=== PATIENT | male | born 1950 | race Caucasian/White ===

== ENCOUNTER 2018-07-19 04:16 | Inpatient (IN) | payer MEDICARE, SELFPAY ==
[2018-07-19] VITALS (18 sets, daily range): BP systolic 121–216; BP diastolic 76–111; PULSE 68–83; RESP 14–26; TEMP 36.5–37; O2SAT 94–97; BMI 38.8; BMI 38.2; BMI 38.3
--- NOTE | 2018-07-19 04:26 | EKG12_ITS ---
Test Reason : CP Blood Pressure : / mmHG Vent. Rate : 081 BPM Atrial Rate : 081 BPM P-R Int : 154 ms QRS Dur : 080 ms QT Int : 362 ms P-R-T Axes : 030 -02 105 degrees QTc Int : 420 ms Normal sinus rhythm Cannot rule out Anteroseptal infarct , age undetermined ST & T wave abnormality, consider lateral ischemia Abnormal ECG Confirmed by KASSY DUGAN MD ([id number]), editor in chief BAR DAN ([id number]) on 07/20/2018 1:05:08 PM Referred By: Shreyas Luna Confirmed By:KASSY DUGAN MD
--- NOTE | 2018-07-19 04:26 | RAD_ITS ---
HISTORY: Chest Pain EXAM:XR Chest 1 View: Portable COMPARISON: None FINDINGS: EKG leads in place. The upper lobes are emphysematous. Reticular interstitial opacity involving the mid and lower lung zones suggestive of scarring. Acute interstitial infiltrates is considered less likely. No definite pleural effusion. Atherosclerotic thoracic aorta. No pneumothorax. RAD/Chest 1 View (Portable) IMPRESSION: 1. Chronic lung disease with emphysema. Bilateral interstitial scarring is suggested and interstitial infiltrates are believed less likely. at 0514 Reported and signed by: Sergey Robison MD Electronically Signed: Sergey Robison, at 5:13 EDT Tel , Service support ,
[2018-07-19] MEDS: 0.9% Normal Saline 1,000 ML 150 ML IV (04:34)
[2018-07-19 04:35] LABS: Absolute Lymphocyte Count 2.11 X10^3/ul (0.83-4.51); Absolute Neutrophil Count 2.9 X10^3/uL (2.0-7.7); Basophil# 0.01 X10^3/uL; Basophil% 0.2 % (0-1); Eosinophil# 0.24 X10^3/uL; Eosinophils% 4.1 % (0-5); Hematocrit 45.9 % (40-54); Hemoglobin 15.5 g/dl (13.0-16.5); Lymphocyte # 2.11 X10^3/ul (4.0); Lymphocyte % 36.1 % (19-41); Mean Corp Hgb Conc 33.8 g/gl (32-36); Mean Corpuscular Hgb 32.8 pg (27.0-32.0); Mean Platelet Vol. 10.6 fl (6.2-12.0); Monocyte# 0.55 X10^3/uL; Monocyte% 9.4 % (0-10); Neutrophil % 49.7 % (47-70); Platelet Count 161 K/mm3 (150-450); RBC Distribution Width SD 46.1 fl (35.1-43.9); Red Blood Count 4.73 M/mm3 (4.6-6.2); White Blood Count 5.8 K/mm3 (4.4-11.0)
[2018-07-19] MEDS: Aspirin 81 MG TAB.CHEW 324 MG PO (04:35)
[2018-07-19 04:40] LABS: POSITIVE COUNT NO; POSITIVE DIFFERENTIAL NO; POSITIVE MORPHOLOGY NO
--- NOTE | 2018-07-19 04:45 | EKG12_ITS ---
Test Reason : REPEAT EKG Blood Pressure : / mmHG Vent. Rate : 076 BPM Atrial Rate : 076 BPM P-R Int : 156 ms QRS Dur : 080 ms QT Int : 384 ms P-R-T Axes : 018 -13 059 degrees QTc Int : 432 ms Normal sinus rhythm Minimal voltage criteria for LVH, may be normal variant Inferior infarct , age undetermined Anteroseptal infarct , age undetermined Abnormal ECG Confirmed by KAILEE DUNCAN, KASSY ([id number]), book or script editor BAR DAN ([id number]) on 07/20/2018 1:04:33 PM Referred By: Shreyas Luna Confirmed By:KASSY DUGAN MD
[2018-07-19] MEDS: Nitroglycerin Oint 1 INCH PACKET TRANSDERM. (04:46)
[2018-07-19] MEDS: Acetaminophen 325 MG Tablet 650 MG PO (04:47)
[2018-07-19 05:17] LABS: Anion Gap 10 (5-15); BUN 26 mg/dL (7-18); BUN/Creat Ratio 17.4 RATIO (10-20); Calcium,Total 9.4 mg/dL (8.5-10.1); Chloride 100 mmol/L (98-107); Creatinine, Serum 1.49 mg/dL (0.70-1.30); EST Glomerular Filtration Rate 50 mL/min (>60); Est Glom Filt Rate - Afr Amer 61 mL/min (>60); Estimated Creatinine Clearance 44.01 ml/min; Glucose 152 mg/dL (74-106); Potassium 4.2 mmol/L (3.5-5.1); Sodium Level 136 mmol/L (136-145)
--- NOTE | 2018-07-19 05:31 | ED.DCSUM_ITS ---
- ER Visit Summary Date of Service: 07/19/18 Chief Complaint: [Chest pain] History of Present Illness: The patient is a 67 M [presents with chest pain that is had off and on for the last week. Patient states pain worse with activity and exertion. He describes a dull ache and tightness in his chest. Pain at times will radiate into both shoulders and arms. Patient had some nausea but no vomiting. At times feels short of breath with activity and exertion. Patient states the pain woke him up around 1 AM and would not resolved. Patient has history of hypertension, diabetes, high cholesterol, and history of remote larynx cancer. Patient denies recent travel or surgery.] Physical Examination: [HEENT-PERRLA, EOMI. Cranial nerves II through XII grossly intact. TMs clear. Mucous membranes moist. No adenopathy. Cardiovascular-regular rate and rhythm without murmur or ectopy Lungs-clear to auscultation, chest wall stable without crepitus or subcu emphysema Abdomen-normoactive bowel sounds, soft, nontender, no rebound or rigidity, no peritoneal signs. Extremities-intact ?4, normal range of motion, normal pulses, atraumatic] Test Results: [EKG obtained arrival shows sinus rhythm with a ventricular rate of 81 bpm. Patient had less than half a millimeter ST elevation in lead V2 with a deep Q wave in patient also with diffusely inverted T waves in V3 through V6 as well as in 1 and aVL. When compared with prior EKG from 2010 all these lerma es are new. CBC with differential obtained on arrival showed a white count of 5.8, hemoglobin 15, hematocrit 46, platelets 161. Chemistries unremarkable. BUN was 26 and creatinine 1.49. Troponin was 0.033. Chest x-ray showed chronic interstitial changes otherwise nothing acute. Second EKG obtained proximally half an hour after the first without any significant change when compared with the first.] Emergency Department Course and Treatment: [Patient received aspirin. Patient received 1 sublingual nitro every 5 minutes x2 and his pain resolved. Patient had an inch of Nitropaste placed to the anterior chest wall. Patient was started on a heparin drip. Patient case was discussed with STEMI physician who was comfortable with the aspirin and the heparin drip however he did not want to give Brilinta or Plavix. It is believe plate patient will likely require a heart catheterization versus stress test.] Treatment Plan: [Admit for further workup and evaluation of patient's chest pain] Disposition: [Admit] Impression: [Acute coronary syndrome] This note was generated with [employer] dictation software. It may contain incorrect words, spelling, and punctuation that were not noted in review of the chart prior to signing ED Disposition - Plan for ED Patient: Referrals: Yanick Rashid MD [Primary Care Provider] -
[2018-07-19] MEDS: HEPARIN/D5w 25,000 UNITS 25,000 UNITS/250 ML IV.SOLN. 15 UNITS IV (05:36)
[2018-07-19] MEDS: Heparin Injection (Vial) 5,000 UNIT/ML VIAL 8000 UNIT IV (05:36)
[2018-07-19 05:40] LABS: Partial Thromboplast Time 33.4 Seconds (24.1-36.2)
--- NOTE | 2018-07-19 06:16 | HP.PCM_ITS ---
Problem List (1) Unstable angina Status: Acute (2) HTN (hypertension) Status: Chronic (3) Diabetes Status: Chronic History of Present Illness Date of Admission: 07/19/18 Chief Complaint: chest pain The patient is a 67 year old M with a significant history of hypertension; recently diagnosed diabetes mellitus; probable hyperlipidemia; COPD; laryngeal cancer status post radiation who presented to the emergency department with 1 week history of progressively worsening aching substernal chest pain that radiated to his bilateral arms and to his teeth. For the last 2 denies this chest pain woke him up from his sleep. His chest pain improves at rest and worsens with walking in the cold. At the emergency department EKG showed minimal ST elevation in lead V2 and ST de pression in leads I, aVL, V2, V3, V4, and V5, as well as T wave flattening in lead V6. Also at emergency department patient had severely elevated blood pressure. Cardiology was consulted. Per emergency department doctor cardiology did not want any Plavix or Brilinta. Patient received aspirin 324 mg at emergency department and nitroglycerin paste was placed on patient's shoulder. Also patient was started on heparin drip at the emergency department. He reported that his father from a heart attack at age 45. His mother had a triple bypass surgery at about age 66 and at age 67. Past Medical History Past Medical History (Chronic Problems): Chronic Problems HTN (hypertension) (Chronic) Diabetes (Chronic) Allergies azithromycin [From Zithromax] Allergy (Verified 07/19/18 04:23) Hives diltiazem Allergy (Verified 07/19/18 04:23) Swelling Penicillins [PCN] Allergy (Verified 07/19/18 04:23) Anaphylaxis tetracycline Allergy (Verified 07/19/18 04:23) Hives amlodipine Adverse Reaction (Verified 07/19/18 04:23) Diarrhea nifedipine Adverse Reaction (Verified 07/19/18 04:23) Upset Stomach simvastatin Adverse Reaction (Verified 07/19/18 04:23) Other Home Medications: Ambulatory Orders Medication Instructions Recorded Albuterol Aerosols [Ventolin 2.5 mg INHALATION Q4HWA.RT 07/19/18 Aerosols] Albuterol IH (ProAir) [Proair Hfa 1 puff INHALATION Q4H PRN PRN 07/19/18 (SP)Vent Pts] Aspirin [Aspir 81] 81 mg PO DAILY 07/19/18 Atenolol 50 mg PO DAILY 07/19/18 Atorvastatin Calcium 10 mg PO DAILY 07/19/18 Doxazosin Mesylate [Cardura] 1 mg PO DAILY 07/19/18 Furosemide [Lasix] 20 mg PO DAILY PRN 07/19/18 Lisinopril 20 mg PO DAILY 07/19/18 Loratadine 10 mg PO DAILY PRN 07/19/18 Meloxicam 15 mg PO DAILY 07/19/18 Metformin HCl 500 mg PO DAILY 07/19/18 Omeprazole [Prilosec] 20 mg PO DAILY 07/19/18 Ropinirole HCl 0.25 mg PO QHS 07/19/18 Surgical History: - - Laryngeal biopsy Lives: Spouse/ Significant Other Smoking Status: Former smoker - Quit 2 weeks ago - *Family History Maternal History Items: Heart Disease Paternal History Items: Heart Disease Review of Systems Constitutional: Denies: Chills, Fever, Weight Change HEENT: Denies: Head Aches, Sinus Congestion, Sinus Drainage Cardiovascular: Reports: Chest Pain. Denies: Palpitations Respiratory: Reports: Shortness of Breath - chronic. Denies: Cough, Shortness of breath at rest, Sputum production Gastrointestinal: Denies: Abdominal Pain, Nausea, Vomiting Genitourinary: Denies: Dysuria Musculoskeletal: Denies: Joint Pain, Joint Tenderness Skin: Denies: Rash, Wounds Neurological: Denies: Numbness, Tingling, Focal weakness Psychiatric: Denies: Anxiety, Depression, Homicidal Ideations, Suicidal Ideations Hematologic/ Lymphatic: Denies: Easy Bruising, Easy Bleeding VTE Information - Inpt Only VTE Present on Admission: No VTE Mechan Device Prophylaxis: None VTE Pharm Prophylaxis ordered?: No Reason prophylaxis not ordered:: Treatment Not Indicated - Started on a heparin drip for unstable angina. Patient Problems: Active and Suspected Problems Unstable angina (Acute) - Physical Exam General: Alert, Oriented x3, Cooperative HEENT: Atraumatic, PERRLA, EOMI, Normocephalic Neck: Supple, No JVD, Negative Carotid Bruits Lungs: Clear to auscultation, Normal air movement Cardiovascular: Regular rate, No murmurs Abdomen: Bowel Sounds Present, Soft, Non Tender Extremities: No edema, Capillary Refill Less than 3 Seconds Skin: No rashes, No breakdown Musculoskeletal: No Tenderness to Palpation of Joints or Extremities Neurological: Neuro grossly intact Psych/Mental Status: Normal Affect, Appropriate Vital Signs Temp Pulse Resp BP Pulse Ox 97.8 F 70 14 176/95 H 97 07/19/18 04:17 07/19/18 05:38 07/19/18 05:38 07/19/18 05:38 07/19/18 05:38 Oxygen Flow Rate (L/min) 2 Oxygen Delivery Method Nasal Cannula Weight: 109.2 kg Body Mass Index (BMI) 38.8 Laboratory Tests Past 24 Hrs 07/19/18 07/19/18 07/19/18 04:24 04:24 04:24 WBC 5.8 RBC 4.73 Hgb 15.5 Hct 45.9 MCV 97.0 H MCH 32.8 H MCHC 33.8 RDW 13.0 RDW Differential 46.1 H Plt Count 161 MPV 10.6 Immature Gran % (Auto) 0.500 Neut % (Auto) 49.7 Lymph % (Auto) 36.1 [place] % (Auto) 9.4 Eos % (Auto) 4.1 Baso % (Auto) 0.2 Absolute Neuts (auto) 2.9 Absolute Lymphs (auto) 2.11 Total Counted Not Reportable APTT 33.4 Sodium 136 Potassium 4.2 Chloride 100 Carbon Dioxide 26.0 Anion Gap 10 BUN 26 H Creatinine 1.49 H Estim Creat Clear Calc 44.01 Est GFR (MDRD) Af Amer 61 Est GFR (MDRD) Non-Af 50 L BUN/Creatinine Ratio 17.4 Glucose 152 H Calcium 9.4 Troponin I 0.033 Assessment/Plan All Active Problems Unstable angina (Acute) The patient is a 67 year old M with a significant history of hypertension; currently diagnosed diabetes mellitus; probable hyperlipidemia; COPD; laryngeal cancer status post radiation who presented to the emergency department with 1 week history progressively worsening aching substernal chest pain that radiated to his bilateral arms and teeth; and with EKG changes of subtle ST elevation in lead V2 and with T wave inversions in multiple leads as well as T wave flattening in lead V6 consistent with likely unstable angina and hypertensive emergency. Unstable angina Admit to a monitored bed on PCU CXR independently reviewed confirms diffuse bilateral pulmonary infiltrates. EKG independently reviewed confirms minimal ST elevation in lead V2 and ST depression in leads I, aVL, V2, V3, V4, and V5, as well as T wave flattening in lead V6. Old records reviewed showed sinus rhythm and sinus tachycardia without ST or T wave abnormalities. Received aspirin 324 mg at emergency department. Resume home aspirin ASA 81 mg p.o. daily Received Nitropaste in the emergency department. We will keep this Nitropaste. Morphine as needed for pain We will check lipid panel. On home atorvastatin 10 mg daily. High intensity statin x1 dose ordered. Troponin was unremarkable at the emergency department. Serial cardiac enzymes Started on heparin drip at emergency department. Heparin drip continued. Stat EKG as needed for chest pain Date Night Caregiver was consulted at the emergency department. Per cardiology no Plavix at this time and cardiology will see patient in a.m. Consult placed inpatient. Hypertensive emergency Highest systolic blood pressure was 216; highest diastolic blood pressure was 111. Nitropaste was placed at the emergency department.; Maintain Nitropaste Labetalol 10 mg x1 ordered. Patient is on home lisinopril and atenolol. Because of probable AK I would hold lisinopril at this time. Atenolol reordered. As needed hydralazine and as needed labetalol ordered. Chest x-ray independently reviewed showed pulmonary infiltrates. However radiology interpretation was probable scarring. Because patient may be going for cardiac cath we will hold off Lasix at this time. Importantly patient is on home Lasix as needed. Trend blood pressures and adjust blood pressure medication. Diabetes mellitus At presentation blood glucose was within goal. Patient is on home metformin. We will hold off metformin since it is too early in admission and patient may go for cardiac catheterization. Patient has been placed n.p.o. for likely procedure. Accu-Cheks every 6 hours with correction scale insulin ordered. Probable DONNIE On admission his creatinine was 1.49. And his BUN was 26. BUN over creatinine was 17.4. It could be vascular congestion from heart failure as his chest x-ray independently reviewed showed diffuse pulmonary infiltrates. We will hold off Lasix at this time. Anticipate that if patient is going for cardiac cath cardiology may start IV fluids. Importantly patient is on home Lasix p.o. as needed. Cannot rule out CKD at this time. COPD Denies shortness of breath above his baseline. PRN albuterol continued. Tobacco abuse Patient reports smoking but stopped smoking 2 weeks ago because of planned right knee surgery for knee pain (? Osteoarthritis). Counselled. DVT prophylaxis Not indicated as patient is on heparin drip for unstable angina. Code Visit Inpatient E&M: 29568 Init Hosp L3
[2018-07-19] MEDS: fentaNYL 100 MCG/2 ML Ampul 50 MCG IV (06:25)
[2018-07-19 06:26] LABS: Prothrombin Time (Protime)PT. 12.9 SECONDS (11.7-14.9)
--- NOTE | 2018-07-19 06:26 | EKG12_ITS ---
Test Reason : REPEAT EKG Blood Pressure : / mmHG Vent. Rate : 082 BPM Atrial Rate : 082 BPM P-R Int : 152 ms QRS Dur : 078 ms QT Int : 362 ms P-R-T Axes : 016 -11 137 degrees QTc Int : 422 ms Normal sinus rhythm Inferior infarct , age undetermined Anteroseptal infarct , age undetermined T wave abnormality, consider lateral ischemia Abnormal ECG Confirmed by KASSY DUGAN MD ([id number]), editor sound BAR DAN ([id number]) on 07/20/2018 1:05:29 PM Referred By: Shreyas Luna Confirmed By:KASSY DUGAN MD
--- NOTE | 2018-07-19 07:30 | EKG12_ITS ---
Test Reason : CP Blood Pressure : / mmHG Vent. Rate : 074 BPM Atrial Rate : 074 BPM P-R Int : 154 ms QRS Dur : 078 ms QT Int : 376 ms P-R-T Axes : 014 -12 026 degrees QTc Int : 417 ms Normal sinus rhythm Moderate voltage criteria for LVH, may be normal variant Inferior infarct , age undetermined Anteroseptal infarct , age undetermined Abnormal ECG When compared with ECG of 19-JUL-2018 07:53, MANUAL COMPARISON REQUIRED, DATA IS UNCONFIRMED Confirmed by KAILEE DUNCAN, KASSY ([id number]), offline editor BAR DAN ([id number]) on 07/21/2018 1:11:54 PM Referred By: Shreyas Luna Confirmed By:KASSY DUGAN MD
[2018-07-19] MEDS: Atorvastatin Calcium 80 MG Tablet PO (08:46)
[2018-07-19] MEDS: Atenolol 50 MG Tablet PO (08:46)
[2018-07-19] MEDS: Doxazosin 1 MG Tablet PO (08:46)
[2018-07-19] MEDS: Pantoprazole Sodium 20 MG Tablet PO (08:47)
--- NOTE | 2018-07-19 09:07 | PCM.CONS.C ---
Reason for Consult Date of Consultation: 07/19/18 Reason for Consultation: Chest discomfort. History of Present Illness: The patient is a 67 year old M with a history of hypertension, hyperlipidemia, obesity who presented to the emergency room yesterday after experiencing chest discomfort which he described as a heaviness radiating to his left arm and his jaw. There was no nausea or diaphoresis or paroxysmal nocturnal dyspnea. He says that he has had some of this discomfort over the last few weeks. He presented to the emergency room his EKG demonstrated subtle T wave inversions anteriorly and his troponin was minimally elevated. He was started on aspirin and heparin and cardiology consulted. At this particular time he is free of any discomfort. His blood pressure was also noted to be markedly elevated when he presented to the emergency room. [] Past Medical History Allergies/Adverse Reactions: Allergies azithromycin [From Zithromax] Allergy (Verified 07/19/18 04:23) Hives diltiazem Allergy (Verified 07/19/18 04:23) Swelling Penicillins [PCN] Allergy (Verified 07/19/18 04:23) Anaphylaxis tetracycline Allergy (Verified 07/19/18 04:23) Hives amlodipine Adverse Reaction (Verified 07/19/18 10:03) Other cramping in feet? Patient unsure nifedipine Adverse Reaction (Verified 07/19/18 04:23) Upset Stomach simvastatin Adverse Reaction (Verified 07/19/18 04:23) Other Home Medications: Ambulatory Orders Medication Instructions Recorded Albuterol Aerosols [Ventolin 2.5 mg INHALATION Q4HWA.RT 07/19/18 Aerosols] Albuterol IH (ProAir) [Proair Hfa 1 puff INHALATION Q4H PRN PRN 07/19/18 (SP)Vent Pts] Aspirin [Aspir 81] 81 mg PO DAILY 07/19/18 Atenolol 50 mg PO DAILY 07/19/18 Atorvastatin Calcium 10 mg PO DAILY 07/19/18 Doxazosin Mesylate [Cardura] 1 mg PO DAILY 07/19/18 Furosemide [Lasix] 20 mg PO DAILY PRN 07/19/18 Lisinopril 20 mg PO DAILY 07/19/18 Loratadine 10 mg PO DAILY PRN 07/19/18 Meloxicam 15 mg PO DAILY 07/19/18 Metformin HCl 500 mg PO DAILY 07/19/18 Omeprazole [Prilosec] 20 mg PO DAILY 07/19/18 Ropinirole HCl 0.25 mg PO QHS 07/19/18 Past Medical History (Chronic Problems): Chronic Problems HTN (hypertension) (Chronic) Diabetes (Chronic) Surgical History: - - Laryngeal biopsy - *Family History Maternal History Items: Heart Disease Paternal History Items: Heart Disease Lives: Spouse/ Significant Other Smoking Status: Former smoker Tobacco Use: Cigarettes Alcohol: None Drugs: None Review of Systems - Review of Systems General: Denies: Fever, Night Sweats, Fatigue HEENT: Denies: Vision Change Cardiovascular: Reports: Chest Discomfort, Chest Discomfort at Rest, Chest Discomfort with Exertion, Chest Pressure, Shortness of Breath. Denies: Orthopnea, PND, Peripheral Edema, Palpitations, Lightheadedness, Dizziness, Near Syncope, Syncope Respiratory: Denies: Cough, Sputum Production, Hemoptysis Gastrointestinal: Denies: Indigestion, Hematemesis, Hematochezia, Melena Genitourinary: Denies: Dysuria, Hematuria Muscoloskeletal: Denies: Myalgias Skin: Denies: Rash Neurological: Denies: Dizziness Psychiatric: Denies: Anxiety Endocrine: Denies: Excessive Sweating Hematologic/ Lymphatic: Denies: Anemia Subjectve: Pleasant gentleman in no apparent distress Objective: Vital Signs Temp Pulse Resp BP Pulse Ox 98.5 F 78 18 134/89 H 97 07/19/18 07:25 07/19/18 08:49 07/19/18 07:25 07/19/18 08:49 07/19/18 07:25 Oxygen Flow Rate (L/min) 2 Oxygen Delivery Method Nasal Cannula Weight: 236 lb 15.951 oz Body Mass Index (BMI) 38.2 General: Awake, Alert, Oriented x 3 HEENT: PERRL, EOMI, Sclera Non Icteric Neck: Supple, Good ROM, No Lymph Node Enlargement Lungs: Clear to auscultation Cardiovascular: Regular Rhythm, Normal S1, Normal S2, No Murmurs, No Rubs, No Gallops Vascular: No Carotid Bruits, Normal Femoral Pulses, Normal Radial Pulses, Normal Dorsalis Pedal Pulse, Normal Posterior Tibial Pulses Abdomen: Bowel Sounds Present, Soft, Non Tender, No HSM, No Organomegaly Extremities: No Cyanosis, No Clubbing, No edema Musculoskeletal: No Erythema Skin: No Rashes Lymphatic: No Lymph Node Enlargement Neurological: No Focal Motor or Sensory Deficit Psych/Mental Status: Appropriate 07/19/18 04:24: WBC 5.8, RBC 4.73, Hgb 15.5, Hct 45.9, MCV 97.0 H, MCH 32.8 H, MCHC 33.8, RDW 13.0, RDW Differential 46.1 H, Plt Count 161, MPV 10.6, Immature Gran % (Auto) 0.500, Neut % (Auto) 49.7, Lymph % (Auto) 36.1, Caroline % (Auto) 9.4, Eos % (Auto) 4.1, Baso % (Auto) 0.2, Absolute Neuts (auto) 2.9, Total Counted Not Reportable 07/19/18 04:24: Sodium 136, Potassium 4.2, Chloride 100, Carbon Dioxide 26.0, Anion Gap 10, BUN 26 H, Creatinine 1.49 H, Est GFR (MDRD) Af Amer 61, Est GFR (MDRD) Non-Af 50 L, BUN/Creatinine Ratio 17.4, Glucose 152 H, Calcium 9.4, Troponin I 0.033 07/19/18 04:24: APTT 33.4 07/19/18 04:24: PT 12.9, INR 1.0 07/19/18 07:40: Troponin I 0.265 H Rhythm: EKG: Normal sinus rhythm with T wave inversions noted in lead V2 and V3 Assessment/Plan 1. Hypertensive emergency Patient presented to the emergency room with markedly elevated blood pressure and EKG changes. It appears to be much improved at this time. Recommendation will be to aggressively treat blood pressure and will recommend the addition of amlodipine 5 mg a day to his current regimen Continue beta-keyur Obtain echocardiogram in a.m. to assess left ventricular function 2. Abnormal cardiac enzymes - NSTEMI He does have evidence of abnormal cardiac enzymes suggestive of myocardial necrosis. Could be secondary to the severe hypertension. His chest discomfort however is suggestive and I would suggest foregoing stress testing and proceeding with a cardiac catheterization. This is especially in light of his T wave inversions noted in his anterior leads. I have discussed this with him the risk benefits and alternatives he understands and agrees to proceed. We will continue with aspirin We will load him with clopidogrel Continue beta-keyur Schedule him for cardiac catheterization in a.m. Start him on statins for risk stratification Encourage cardiac diet Thank you for allowing me to participate in the care of your patient. Please don't hesitate to call if any issues arise
--- NOTE | 2018-07-19 09:12 | CON.PCM_ITS ---
Reason for Consult Date of Consultation: 07/19/18 Reason for Consultation: Chest discomfort. History of Present Illness: The patient is a 67 year old M with a history of hypertension, hyperlipidemia, obesity who presented to the emergency room yesterday after experiencing chest discomfort which he described as a heaviness radiating to his left arm and his jaw. There was no nausea or diaphoresis or paroxysmal nocturnal dyspnea. He says that he has had some of this discomfort over the last few weeks. He presented to the emergency room his EKG demonstrated subtle T wave inversions anteriorly and his troponin was minimally elevated. He was started on aspirin and heparin and cardiology consulted. At this particular time he is free of any discomfort. His blood pressure was also noted to be markedly elevated when he presented to the emergency room. [] Past Medical History Allergies/Adverse Reactions: Allergies azithromycin [From Zithromax] Allergy (Verified 07/19/18 04:23) Hives diltiazem Allergy (Verified 07/19/18 04:23) Swelling Penicillins [PCN] Allergy (Verified 07/19/18 04:23) Anaphylaxis tetracycline Allergy (Verified 07/19/18 04:23) Hives amlodipine Adverse Reaction (Verified 07/19/18 10:03) Other cramping in feet? Patient unsure nifedipine Adverse Reaction (Verified 07/19/18 04:23) Upset Stomach simvastatin Adverse Reaction (Verified 07/19/18 04:23) Other Home Medications: Ambulatory Orders Medication Instructions Recorded Albuterol Aerosols [Ventolin 2.5 mg INHALATION Q4HWA.RT 07/19/18 Aerosols] Albuterol IH (ProAir) [Proair Hfa 1 puff INHALATION Q4H PRN PRN 07/19/18 (SP)Vent Pts] Aspirin [Aspir 81] 81 mg PO DAILY 07/19/18 Atenolol 50 mg PO DAILY 07/19/18 Atorvastatin Calcium 10 mg PO DAILY 07/19/18 Doxazosin Mesylate [Cardura] 1 mg PO DAILY 07/19/18 Furosemide [Lasix] 20 mg PO DAILY PRN 07/19/18 Lisinopril 20 mg PO DAILY 07/19/18 Loratadine 10 mg PO DAILY PRN 07/19/18 Meloxicam 15 mg PO DAILY 07/19/18 Metformin HCl 500 mg PO DAILY 07/19/18 Omeprazole [Prilosec] 20 mg PO DAILY 07/19/18 Ropinirole HCl 0.25 mg PO QHS 07/19/18 Past Medical History (Chronic Problems): Chronic Problems HTN (hypertension) (Chronic) Diabetes (Chronic) Surgical History: - - Laryngeal biopsy - *Family History Maternal History Items: Heart Disease Paternal History Items: Heart Disease Lives: Spouse/ Significant Other Smoking Status: Former smoker Tobacco Use: Cigarettes Alcohol: None Drugs: None Review of Systems - Review of Systems General: Denies: Fever, Night Sweats, Fatigue HEENT: Denies: Vision Change Cardiovascular: Reports: Chest Discomfort, Chest Discomfort at Rest, Chest Discomfort with Exertion, Chest Pressure, Shortness of Breath. Denies: Orthopnea, PND, Peripheral Edema, Palpitations, Lightheadedness, Dizziness, Near Syncope, Syncope Respiratory: Denies: Cough, Sputum Production, Hemoptysis Gastrointestinal: Denies: Indigestion, Hematemesis, Hematochezia, Melena Genitourinary: Denies: Dysuria, Hematuria Muscoloskeletal: Denies: Myalgias Skin: Denies: Rash Neurological: Denies: Dizziness Psychiatric: Denies: Anxiety Endocrine: Denies: Excessive Sweating Hematologic/ Lymphatic: Denies: Anemia Subjectve: Pleasant gentleman in no apparent distress Objective: Vital Signs Temp Pulse Resp BP Pulse Ox 98.5 F 78 18 134/89 H 97 07/19/18 07:25 07/19/18 08:49 07/19/18 07:25 07/19/18 08:49 07/19/18 07:25 Oxygen Flow Rate (L/min) 2 Oxygen Delivery Method Nasal Cannula Weight: 236 lb 15.951 oz Body Mass Index (BMI) 38.2 General: Awake, Alert, Oriented x 3 HEENT: PERRL, EOMI, Sclera Non Icteric Neck: Supple, Good ROM, No Lymph Node Enlargement Lungs: Clear to auscultation Cardiovascular: Regular Rhythm, Normal S1, Normal S2, No Murmurs, No Rubs, No Gallops Vascular: No Carotid Bruits, Normal Femoral Pulses, Normal Radial Pulses, Normal Dorsalis Pedal Pulse, Normal Posterior Tibial Pulses Abdomen: Bowel Sounds Present, Soft, Non Tender, No HSM, No Organomegaly Extremities: No Cyanosis, No Clubbing, No edema Musculoskeletal: No Erythema Skin: No Rashes Lymphatic: No Lymph Node Enlargement Neurological: No Focal Motor or Sensory Deficit Psych/Mental Status: Appropriate 07/19/18 04:24: WBC 5.8, RBC 4.73, Hgb 15.5, Hct 45.9, MCV 97.0 H, MCH 32.8 H, MCHC 33.8, RDW 13.0, RDW Differential 46.1 H, Plt Count 161, MPV 10.6, Immature Gran % (Auto) 0.500, Neut % (Auto) 49.7, Lymph % (Auto) 36.1, [place] % (Auto) 9.4, Eos % (Auto) 4.1, Baso % (Auto) 0.2, Absolute Neuts (auto) 2.9, Total Counted Not Reportable 07/19/18 04:24: Sodium 136, Potassium 4.2, Chloride 100, Carbon Dioxide 26.0, Anion Gap 10, BUN 26 H, Creatinine 1.49 H, Est GFR (MDRD) Af Amer 61, Est GFR (MDRD) Non-Af 50 L, BUN/Creatinine Ratio 17.4, Glucose 152 H, Calcium 9.4, Troponin I 0.033 07/19/18 04:24: APTT 33.4 07/19/18 04:24: PT 12.9, INR 1.0 07/19/18 07:40: Troponin I 0.265 H Rhythm: EKG: Normal sinus rhythm with T wave inversions noted in lead V2 and V3 Assessment/Plan 1. Hypertensive emergency * Patient presented to the emergency room with markedly elevated blood pressure and EKG changes. It appears to be much improved at this time. * Recommendation will be to aggressively treat blood pressure and will recommend the addition of amlodipine 5 mg a day to his current regimen * Continue beta-keyur * Obtain echocardiogram in a.m. to assess left ventricular function 2. Abnormal cardiac enzymes - NSTEMI * He does have evidence of abnormal cardiac enzymes suggestive of myocardial necrosis. Could be secondary to the severe hypertension. His chest discomfort however is suggestive and I would suggest foregoing stress testing and proceeding with a cardiac catheterization. This is especially in light of his T wave inversions noted in his anterior leads. I have discussed this with him the risk benefits and alternatives he understands and agrees to proceed. * We will continue with aspirin * We will load him with clopidogrel * Continue beta-keyur * Schedule him for cardiac catheterization in a.m. * Start him on statins for risk stratification * Encourage cardiac diet * * Thank you for allowing me to participate in the care of your patient. Please don't hesitate to call if any issues arise
[2018-07-19] MEDS: 0.9% Normal Saline 1,000 ML 60 ML IV (10:06)
[2018-07-19] MEDS: Clopidogrel Bisulfate 300 MG Tablet PO (10:06)
[2018-07-19] MEDS: amLODIPine 5 MG Tablet PO (10:06)
[2018-07-19] MEDS: Insulin Lispro 100 UNIT/ML INSULN.PEN SQ (12:08)
[2018-07-19 12:10] LABS: Bedside Glucose 180 mg/dL (70-110)
[2018-07-19] MEDS: Enoxaparin 100 MG/ML Syringe SC (14:49)
[2018-07-19 17:16] LABS: Bedside Glucose 127 mg/dL (70-110)
--- NOTE | 2018-07-19 19:52 | EKG12_ITS ---
Test Reason : CP ADMISSION Blood Pressure : / mmHG Vent. Rate : 075 BPM Atrial Rate : 075 BPM P-R Int : 154 ms QRS Dur : 076 ms QT Int : 390 ms P-R-T Axes : 011 -16 002 degrees QTc Int : 435 ms Normal sinus rhythm Minimal voltage criteria for LVH, may be normal variant Inferior infarct , age undetermined Anteroseptal infarct , age undetermined T wave abnormality, consider lateral ischemia Abnormal ECG Confirmed by KAILEE DUNCAN, KASSY ([id number]), supervising film or videotape editor BAR DAN ([id number]) on 07/21/2018 1:13:04 PM Referred By: Shreyas Luna Confirmed By:KASSY DUGAN MD
[2018-07-19] MEDS: 0.9% NaCl Peripheral Flush Adult/Peds IV (19:53)
[2018-07-19] MEDS: Morphine 2 MG/ML Syringe IV (19:54)
[2018-07-19] MEDS: Pramipexole Di-HCl 0.125 MG Tablet PO (21:39)
--- NOTE | 2018-07-19 21:52 | ECHOCS_ITS ---
Reason For Study: CP Procedure This was a 2D Doppler, Color Flow transthoracic echocardiogram. Contrast injection was performed. Exam performed portable in patient room. Left Ventricle Normal LV size. The estimated ejection fraction is 40 %. Moderate segmental systolic dysfunction (see wall motion). Diastolic function is indeterminate. Anterior [place] : Hypokinetic. Mid-Anterior : Hypokinetic. Mid-Inferior: Hypokinetic. Right Ventricle Normal RV size. Normal systolic function. Atria Normal left atrium. Normal right atrium. Mitral Valve Normal mitral valve. Tricuspid Valve Normal tricuspid valve. Mild to moderate (1-2+) tricuspid valve insufficiency. Pulmonary artery systolic pressure is 53 mmHg. Moderate pulmonary hypertension. Aortic Valve Trisinus/trileaflet aortic valve. Pulmonic Valve Normal pulmonic valve. Great Vessels Normal aortic root. The pulmonary artery is normal size. Normal inferior vena cava. Pericardium/Pleural No pericardial effusion. Medication Diluted definity 5ml given slow IV push to enhance endocardial definition. MMode/2D Measurements & Calculations LVIDd: 5.8 cm IVSd: 1.0 cm LA dimension: 4.2 cm LVIDs: 4.2 cm LVPWd: 0.79 cm RVDd: 3.8 cm FS: 26.9 % LAV(MOD-bp): 62.2 ml LA A4 area: 19.7 cm2 RA A4 area: 13.3 cm2 LAV(MOD-bp) Indexed: 29.0 ml/m2 LAV(MOD-sp2): 66.6 ml LAV(MOD-sp4): 55.4 ml Doppler Measurements & Calculations Ao V2 max: 164.8 cm/sec LV V1 max: 118.0 cm/sec PA V2 max: 127.1 cm/sec Ao max P.9 mmHg LV V1 max P.6 mmHg Ao V2 mean: 100.3 cm/sec LV V1 mean P.5 mmHg Ao mean P.7 mmHg LV V1 mean: 72.0 cm/sec Ao V2 VTI: 32.1 cm LV V1 VTI: 26.2 cm TR max ramon: 348.2 cm/sec TR max P.5 mmHg Interpretation Summary Pulmonary artery systolic pressure is 53 mmHg. Moderate pulmonary hypertension. Normal LV size. The estimated ejection fraction is 40 %. Moderate segmental systolic dysfunction (see wall motion). Diastolic function is indeterminate. Ordering Physician: Zaki Her Referring Physician: Shreyas Luna Performed By: Candelario Blancas RCS
[2018-07-19 23:10] LABS: Bedside Glucose 127 mg/dL (70-110)
[2018-07-20] VITALS (18 sets, daily range): BP systolic 140–169; BP diastolic 76–115; PULSE 68–85; RESP 16–19; TEMP 36.6–37.1; O2SAT 92–99
[2018-07-20 00:58] LABS: Bacteria 0 SEEN /hpf (None Seen); Mucous, Urine 0 SEEN /hpf (<or=2+); Red Blood Cells-Urine 0 SEEN /hpf (0-5); Squamous Epithelial Cells - UA 0 SEEN /hpf (0-5); White Blood Cells 0 SEEN /hpf (0-5)
[2018-07-20 01:19] LABS: Color, Urine Yellow (Yellow); Glucose, Dipstick Normal (Normal); Ketone-Dipstick Negative (Negative); Leukocyte Esterase-Dipstick Negative /ul (Negative); Nitrite-Dipstick Negative (Negative); Occult Blood-Urine Negative /ul (Negative); Protein-Dipstick 15 mg/dl (Negative); Urine Bilirubin Dipstick Negative (Negative); Urine Clarity Clear (Clear); Urine Urobilinogen Normal (Normal); Urine pH 6.5 (5.0 - 8.0)
[2018-07-20] MEDS: 0.9% Normal Saline 1,000 ML 60 ML IV ×2 (02:45→15:33)
[2018-07-20] MEDS: hydrALAZINE 20 MG/ML Vial 10 MG IV (04:04)
[2018-07-20 05:15] LABS: Absolute Lymphocyte Count 1.37 X10^3/ul (0.83-4.51); Absolute Neutrophil Count 2.9 X10^3/uL (2.0-7.7); Basophil# 0.03 X10^3/uL; Basophil% 0.6 % (0-1); Eosinophil# 0.25 X10^3/uL; Eosinophils% 4.8 % (0-5); Hematocrit 41.8 % (40-54); Hemoglobin 14.1 g/dl (13.0-16.5); Lymphocyte # 1.37 X10^3/ul (4.0); Lymphocyte % 26.3 % (19-41); Mean Corp Hgb Conc 33.7 g/gl (32-36); Mean Corpuscular Hgb 32.9 pg (27.0-32.0); Mean Corpuscular Volume 97.4 fL (80-94); Mean Platelet Vol. 10.5 fl (6.2-12.0); Monocyte# 0.64 X10^3/uL; Monocyte% 12.3 % (0-10); Neutrophil # 2.89 X10^3/uL (2.7-7.7); Neutrophil % 55.6 % (47-70); Platelet Count 145 K/mm3 (150-450); RBC Distribution Width CV 12.8 % (11.6-14.6); RBC Distribution Width SD 44.6 fl (35.1-43.9); Red Blood Count 4.29 M/mm3 (4.6-6.2); White Blood Count 5.2 K/mm3 (4.4-11.0)
[2018-07-20 05:21] LABS: POSITIVE COUNT NO; POSITIVE DIFFERENTIAL NO; POSITIVE MORPHOLOGY NO
[2018-07-20 05:24] LABS: Anion Gap 9 (5-15); BUN 18 mg/dL (7-18); BUN/Creat Ratio 15.4 RATIO (10-20); Calcium,Total 8.9 mg/dL (8.5-10.1); Chloride 103 mmol/L (98-107); Cholesterol 178 mg/dL (200); Creatinine, Serum 1.17 mg/dL (0.70-1.30); EST Glomerular Filtration Rate 66 mL/min (>60); Est Glom Filt Rate - Afr Amer 80 mL/min (>60); Estimated Creatinine Clearance 56.04 ml/min; Glucose 140 mg/dL (74-106); High Density Lipoprotein 40 mg/dL; Potassium 4.3 mmol/L (3.5-5.1); Sodium Level 136 mmol/L (136-145); Triglycerides 208 mg/dL; Very Low Density Lipoprotein 42 mg/dL (5-40)
[2018-07-20 05:25] LABS: International Normalized Ratio 1.1; Prothrombin Time (Protime)PT. 13.9 SECONDS (11.7-14.9)
--- NOTE | 2018-07-20 05:55 | EKG12_ITS ---
Test Reason : AM EKG Blood Pressure : / mmHG Vent. Rate : 080 BPM Atrial Rate : 080 BPM P-R Int : 156 ms QRS Dur : 080 ms QT Int : 366 ms P-R-T Axes : 018 -13 045 degrees QTc Int : 422 ms Normal sinus rhythm Moderate voltage criteria for LVH, may be normal variant Inferior infarct , age undetermined Cannot rule out Anteroseptal infarct , age undetermined Abnormal ECG When compared with ECG of 19-JUL-2018 20:00, MANUAL COMPARISON REQUIRED, DATA IS UNCONFIRMED Confirmed by KAILEE DUNCAN, KASSY ([id number]), editorial assistant BAR DAN ([id number]) on 07/21/2018 1:08:08 PM Referred By: Shreyas Luna Confirmed By:KASSY DUGAN MD
[2018-07-20] MEDS: Doxazosin 1 MG Tablet PO (06:03)
[2018-07-20] MEDS: Aspirin E.C. 81 MG Tablet PO (06:03)
[2018-07-20] MEDS: Atenolol 50 MG Tablet PO (06:03)
[2018-07-20] MEDS: Clopidogrel Bisulfate 75 MG Tablet PO (06:03)
[2018-07-20] MEDS: amLODIPine 5 MG Tablet PO (06:03)
[2018-07-20 06:20] LABS: Bedside Glucose 145 mg/dL (70-110)
--- NOTE | 2018-07-20 07:58 | PCM.PN.HOSP ---
Patient Problems: Active and Suspected Problems Unstable angina (Acute) Subjective: Patient currently with no chest discomfort although with any activity does have recurrence. Reviewed findings of cardiac catheterization with patient and family and amenable to transfer to acute care facility for evaluation per cardiothoracic surgery for CABG. Discussed importance of tobacco cessation continuation as noted quitting approximately 2 weeks prior to current presentation. Patient denies fevers, chills, nausea, emesis, abdominal pain or dyspnea. Objective: Physical Examination: General: awake, alert, oriented x 3 and cooperative, seated upright in the PCU bed in no apparent distress. Skin: normal color, turgor, no icterus, cyanosis, bilateral lower extremity chronic venous stasis skin changes. HEENT: AT/NC, EOMI, PERRLA, MMM. Lungs: Breath sounds bilaterally, moderate effort, no rales, ronchi or wheezing. Heart: Regular rate and rhythm; no gallop, rub audible. Abdomen: soft, obese, NTTP, ND, normal BS. Extremities: no cyanosis, clubbing, or edema, see skin, s/p cardiac catheterization, R wrist w/ pressure device in place. Neurological: patient awake, alert, oriented x 3; cognitive function intact; pupils equally reactive to light and accomodation; cranial nerves II-XII grossly normal, moving all 4 extremities, no focal deficits, strength moderately to severely globally decreased secondary to acute presentation. Psychiatric: affect appears normal, no acute evidence of depressive or anxiety feelings. Vitals/I&O's: Vital Signs Temp Pulse Resp BP Pulse Ox 98.1 F 83 18 153/90 H 97 07/20/18 05:59 07/20/18 05:59 07/20/18 05:59 07/20/18 05:59 07/20/18 07:00 Oxygen Flow Rate (L/min) 1 Oxygen Delivery Method Nasal Cannula Weight: 236 lb 15.951 oz Body Mass Index (BMI) 38.2 Intake and Output for Last 24 Hours 07/18/18 07/19/18 07/20/18 23:59 23:59 23:59 Intake Total 1140 / 1140 1005 / 1005 Balance 1140 / 1140 1005 / 1005 Laboratory Results 07/19/18 07:40: Troponin I 0.265 H 07/19/18 10:25: Troponin I 0.635 H* 07/19/18 11:58: POC Glucose 180 H 07/19/18 17:03: POC Glucose 127 H 07/19/18 23:06: POC Glucose 127 H 07/20/18 00:50: Urine Color Yellow, Urine Clarity Clear, Urine pH 6.5, Ur Specific [place] 1.010, Urine Protein 15 H, Urine Glucose (UA) Normal, Urine Ketones Negative, Urine Occult Blood Negative, Urine Nitrite Negative, Urine Bilirubin Negative, Urine Urobilinogen Normal, Ur Leukocyte Esterase Negative, Urine RBC 0 SEEN, Urine WBC 0 SEEN, Ur Squamous Epith Cells 0 SEEN, Urine Bacteria 0 SEEN, Urine Mucus 0 SEEN 07/20/18 05:00: Sodium 136, Potassium 4.3, Chloride 103, Carbon Dioxide 24.0, Anion Gap 9, BUN 18, Creatinine 1.17, Estim Creat Clear Calc 56.04, Est GFR (MDRD) Af Amer 80, Est GFR (MDRD) Non-Af 66, BUN/Creatinine Ratio 15.4, Glucose 140 H, Calcium 8.9, Triglycerides 208 H, Cholesterol 178, LDL Cholesterol 96, VLDL Cholesterol 42 H, HDL Cholesterol 40 07/20/18 05:00: WBC 5.2, RBC 4.29 L, Hgb 14.1, Hct 41.8, MCV 97.4 H, MCH 32.9 H, MCHC 33.7, RDW 12.8, RDW Differential 44.6 H, Plt Count 145 L, MPV 10.5, Immature Gran % (Auto) 0.400, Neut % (Auto) 55.6, Lymph % (Auto) 26.3, [place] % (Auto) 12.3 H, Eos % (Auto) 4.8, Baso % (Auto) 0.6, Absolute Neuts (auto) 2.9, Absolute Lymphs (auto) 1.37, Total Counted Not Reportable 07/20/18 05:00: PT 13.9, INR 1.1, APTT 36.0 07/20/18 06:10: POC Glucose 145 H Current Medications Amlodipine Besylate (Norvasc) 5 mg PO DAILY [facility] Last Admin: 07/20/18 06:03 Dose: 5 [facility]: 07/20/18 06:03 Dose: 81 mg Atenolol (Tenormin (Beta Yeni)) 50 mg PO DAILY [facility] Last Admin: 07/20/18 06:03 Dose: 50 mg Atorvastatin Calcium (Lipitor) 80 mg PO QHS [facility] Last Admin: 07/19/18 08:46 Dose: 80 mg Bisacodyl (Dulcolax) 5 mg PO DAILY PRN PRN PRN Reason: Constipation Clopidogrel Bisulfate (Plavix) 75 mg PO DAILY [facility] Last Admin: 07/20/18 06:03 Dose: 75 mg Dextrose (D50w Syringe) 0 gm IV X1 PRN; Protocol PRN Reason: Hypoglycemia Doxazosin Mesylate (Cardura) 1 mg PO DAILY [facility] Last Admin: 07/20/18 06:03 Dose: 1 mg Glucagon () 1 mg IM .X1 PRN PRN Reason: Hypoglycemia Hydralazine HCl (Apresoline Iv) 10 mg IV Q4H PRN PRN PRN Reason: SBP > 160 Last Admin: 07/20/18 04:04 Dose: 10 mg Sodium Chloride () 1,000 mls @ 15 mls/hr IV .Q48H [facility] Last Admin: 07/20/18 06:02 Dose: Not Given Sodium Chloride () 1,000 mls @ 60 mls/hr IV .[id number] [facility] Last Admin: 07/20/18 02:45 Dose: 60 mls/hr Insulin Human Lispro (Humalog Kwikpen (Bkc)) 0 unit SQ Q6 [facility]; Protocol Last Admin: 07/20/18 06:13 Dose: Not Given Labetalol HCl (Trandate) 10 mg IV Q4H PRN PRN PRN Reason: SBP > 160 Lisinopril (Zestril) 10 mg PO DAILY [facility] Loratadine (Claritin) 10 mg PO DAILY PRN PRN Reason: ALLERGIES Magnesium Hydroxide (Milk Of Magnesia) 30 ml PO DAILY PRN PRN Reason: Constipation Morphine Sulfate () 2 - 4 mg IV Q4H PRN PRN PRN Reason: chest Pain Last Admin: 07/19/18 19:54 Dose: 2 mg Morphine Sulfate () 2 - 4 mg IV Q4H PRN PRN PRN Reason: chest Pain Pantoprazole Sodium (Protonix) 20 mg PO DAILY [facility] Last Admin: 07/19/18 08:47 Dose: 20 mg Pramipexole Dihydrochloride (Mirapex) 0.125 mg PO QHS [facility] Last Admin: 07/19/18 21:39 Dose: 0.125 mg Sodium Chloride () 5 - 15 ml IV UD PRN PRN Reason: SALINE FLUSH Last Admin: 07/19/18 19:53 Dose: 10 ml Medical Necessity - Tobacco Use Smoking Status: Former smoker Tobacco Use: Cigarettes Assessment/Plan All Active Problems Unstable angina (Acute) The patient is a 67 y/o M w/ PMHx: HTN, HLD, Obesity, Diabetes mellitus type II, Chronic COPD, Hx Laryngeal CA s/p radiation who presents to the [facility] ED on 07/19/18 with history of progressively worsening, aching, substernal chest discomfort rating to bilateral upper extremity and jaw times 1 week, improving with rest, worsening with activity. (1) Chest Pain w/ secondary to Unstable Angina w/ Acute NSTEMI w/ Hypertensive Emergency: EKG in ED w/ minimal ST elevation V2 and ST depression I, aVL, V2-V5, T wave flattening V6, CXR w/ chronic COPD changes. Trop elevated, 0.033->0.265->0.635. Admitted to PCU, maintained on a monitored bed, continued serial cardiac enzymes and EKGs as noted. ECHO pending. Continue medical management w/ asa, plavix w/ load, BB, norvasc, lisinopril, statin w/ AM FLP as noted. Therapeutic lovenox administered. Cardiology consulted, ECHO ordered, added plavix w/ load, 07/20/18 Cardiac catheterization w/ left main coronary artery with calcification and mild disease, left anterior descending artery with ostial 70-80% stenosis, diffuse distal disease in the LAD noted, dominant left circumflex artery with high-grade mid circumflex artery stenosis, nondominant right coronary artery with mild diffuse disease, normal left ventricular end-diastolic pressure, reduced left ventricular systolic function with mild anterior hypokinesis and apical hypokinesis moderate, calcification noted of the aorta and the proximal left anterior descending artery. Based on these findings, discussed with Cardiology and recommendation for consideration for CABG. Transfer arranged to [facility] for evaluation per Dr. Yu, CT Surgeon. ASA, NG, morphine. (2) Hypertensive Emergency: Improved BPs. Continue cardiology altered regimen including Norvasc, lisinopril, atenolol, PRN IV hydralazine. (3) Diabetes mellitus type II: Not on regimen, HgbA1c 6.6%, ADA diet, accu checks w/ ISS, nutrition consultation for education and teaching. Given cardiac catheterization will need to delay start metformin. (4) Hyperlipidemia: Continue home statin regimen. AM FLP w/ TG 208, TChol 178, LDL 96, VLDL 42, HDL 40. (5) Hx Laryngeal CA: s/p radiation. (6) Chronic COPD: ATC duonebs, PRN albuterol, HOB, IS parameters. (7) History of Tobacco use: Encourage continued tobacco cessation. (8) RLS: Continue home mirapex regimen. (9) GERD: PPI. (10) DVT Prophylaxis: SCDs, therapeutic lovenox x 1.
--- NOTE | 2018-07-20 08:08 | PN_ITS ---
Patient Problems: Active and Suspected Problems Unstable angina (Acute) Subjective: Patient currently with no chest discomfort although with any activity does have recurrence. Reviewed findings of cardiac catheterization with patient and family and amenable to transfer to acute care facility for evaluation per cardiothoracic surgery for CABG. Discussed importance of tobacco cessation continuation as noted quitting approximately 2 weeks prior to current presentation. Patient denies fevers, chills, nausea, emesis, abdominal pain or dyspnea. Objective: Physical Examination: General: awake, alert, oriented x 3 and cooperative, seated upright in the PCU bed in no apparent distress. Skin: normal color, turgor, no icterus, cyanosis, bilateral lower extremity chronic venous stasis skin changes. HEENT: AT/NC, EOMI, PERRLA, MMM. Lungs: Breath sounds bilaterally, moderate effort, no rales, ronchi or wheezing. Heart: Regular rate and rhythm; no gallop, rub audible. Abdomen: soft, obese, NTTP, ND, normal BS. Extremities: no cyanosis, clubbing, or edema, see skin, s/p cardiac catheterization, R wrist w/ pressure device in place. Neurological: patient awake, alert, oriented x 3; cognitive function intact; pupils equally reactive to light and accomodation; cranial nerves II-XII grossly normal, moving all 4 extremities, no focal deficits, strength moderately to severely globally decreased secondary to acute presentation. Psychiatric: affect appears normal, no acute evidence of depressive or anxiety feelings. Vitals/I&O's: Vital Signs Temp Pulse Resp BP Pulse Ox 98.1 F 83 18 153/90 H 97 07/20/18 05:59 07/20/18 05:59 07/20/18 05:59 07/20/18 05:59 07/20/18 07:00 Oxygen Flow Rate (L/min) 1 Oxygen Delivery Method Nasal Cannula Weight: 236 lb 15.951 oz Body Mass Index (BMI) 38.2 Intake and Output for Last 24 Hours 07/18/18 07/19/18 07/20/18 23:59 23:59 23:59 Intake Total 1140 / 1140 1005 / 1005 Balance 1140 / 1140 1005 / 1005 Laboratory Results 07/19/18 07:40: Troponin I 0.265 H 07/19/18 10:25: Troponin I 0.635 H* 07/19/18 11:58: POC Glucose 180 H 07/19/18 17:03: POC Glucose 127 H 07/19/18 23:06: POC Glucose 127 H 07/20/18 00:50: Urine Color Yellow, Urine Clarity Clear, Urine pH 6.5, Ur Specific [place] 1.010, Urine Protein 15 H, Urine Glucose (UA) Normal, Urine Ketones Negative, Urine Occult Blood Negative, Urine Nitrite Negative, Urine Bilirubin Negative, Urine Urobilinogen Normal, Ur Leukocyte Esterase Negative, Urine RBC 0 SEEN, Urine WBC 0 SEEN, Ur Squamous Epith Cells 0 SEEN, Urine Bacteria 0 SEEN, Urine Mucus 0 SEEN 07/20/18 05:00: Sodium 136, Potassium 4.3, Chloride 103, Carbon Dioxide 24.0, Anion Gap 9, BUN 18, Creatinine 1.17, Estim Creat Clear Calc 56.04, Est GFR (MDRD) Af Amer 80, Est GFR (MDRD) Non-Af 66, BUN/Creatinine Ratio 15.4, Glucose 140 H, Calcium 8.9, Triglycerides 208 H, Cholesterol 178, LDL Cholesterol 96, VLDL Cholesterol 42 H, HDL Cholesterol 40 07/20/18 05:00: WBC 5.2, RBC 4.29 L, Hgb 14.1, Hct 41.8, MCV 97.4 H, MCH 32.9 H, MCHC 33.7, RDW 12.8, RDW Differential 44.6 H, Plt Count 145 L, MPV 10.5, Immature Gran % (Auto) 0.400, Neut % (Auto) 55.6, Lymph % (Auto) 26.3, [place] % (Auto) 12.3 H, Eos % (Auto) 4.8, Baso % (Auto) 0.6, Absolute Neuts (auto) 2.9, Absolute Lymphs (auto) 1.37, Total Counted Not Reportable 07/20/18 05:00: PT 13.9, INR 1.1, APTT 36.0 07/20/18 06:10: POC Glucose 145 H Current Medications Amlodipine Besylate (Norvasc) 5 mg PO DAILY [facility] Last Admin: 07/20/18 06:03 Dose: 5 mg [facility] Admin: 07/20/18 06:03 Dose: 81 mg Atenolol (Tenormin (Beta Yeni)) 50 mg PO DAILY [facility] Last Admin: 07/20/18 06:03 Dose: 50 mg Atorvastatin Calcium (Lipitor) 80 mg PO QHS [facility] Last Admin: 07/19/18 08:46 Dose: 80 mg Bisacodyl (Dulcolax) 5 mg PO DAILY PRN PRN PRN Reason: Constipation Clopidogrel Bisulfate (Plavix) 75 mg PO DAILY [facility] Last Admin: 07/20/18 06:03 Dose: 75 mg Dextrose (D50w Syringe) 0 gm IV X1 PRN; Protocol PRN Reason: Hypoglycemia Doxazosin Mesylate (Cardura) 1 mg PO DAILY [facility] Last Admin: 07/20/18 06:03 Dose: 1 mg Glucagon () 1 mg IM .X1 PRN PRN Reason: Hypoglycemia Hydralazine HCl (Apresoline Iv) 10 mg IV Q4H PRN PRN PRN Reason: SBP > 160 Last Admin: 07/20/18 04:04 Dose: 10 mg Sodium Chloride () 1,000 mls @ 15 mls/hr IV .Q48H [facility] Last Admin: 07/20/18 06:02 Dose: Not Given Sodium Chloride () 1,000 mls @ 60 mls/hr IV .[id number] [facility] Last Admin: 07/20/18 02:45 Dose: 60 mls/hr Insulin Human Lispro (Humalog Kwikpen (Bkc)) 0 unit SQ Q6 [facility]; Protocol Last Admin: 07/20/18 06:13 Dose: Not Given Labetalol HCl (Trandate) 10 mg IV Q4H PRN PRN PRN Reason: SBP > 160 Lisinopril (Zestril) 10 mg PO DAILY [facility] Loratadine (Claritin) 10 mg PO DAILY PRN PRN Reason: ALLERGIES Magnesium Hydroxide (Milk Of Magnesia) 30 ml PO DAILY PRN PRN Reason: Constipation Morphine Sulfate () 2 - 4 mg IV Q4H PRN PRN PRN Reason: chest Pain Last Admin: 07/19/18 19:54 Dose: 2 mg Morphine Sulfate () 2 - 4 mg IV Q4H PRN PRN PRN Reason: chest Pain Pantoprazole Sodium (Protonix) 20 mg PO DAILY [facility] Last Admin: 07/19/18 08:47 Dose: 20 mg Pramipexole Dihydrochloride (Mirapex) 0.125 mg PO QHS [facility] Last Admin: 07/19/18 21:39 Dose: 0.125 mg Sodium Chloride () 5 - 15 ml IV UD PRN PRN Reason: SALINE FLUSH Last Admin: 07/19/18 19:53 Dose: 10 ml Medical Necessity - Tobacco Use Smoking Status: Former smoker Tobacco Use: Cigarettes Assessment/Plan All Active Problems Unstable angina (Acute) The patient is a 67 y/o M w/ PMHx: HTN, HLD, Obesity, Diabetes mellitus type II, Chronic COPD, Hx Laryngeal CA s/p radiation who presents to the [facility] ED on 07/19/18 with history of progressively worsening, aching, substernal chest discomfort rating to bilateral upper extremity and jaw times 1 week, improving with rest, worsening with activity. (1) Chest Pain w/ secondary to Unstable Angina w/ Acute NSTEMI w/ Hypertensive Emergency: EKG in ED w/ minimal ST elevation V2 and ST depression I, aVL, V2-V5, T wave flattening V6, CXR w/ chronic COPD changes. Trop elevated, 0.033->0.265->0.635. Admitted to PCU, maintained on a monitored bed, continued serial cardiac enzymes and EKGs as noted. ECHO pending. Continue medical management w/ asa, plavix w/ load, BB, norvasc, lisinopril, statin w/ AM FLP as noted. Therapeutic lovenox administered. Cardiology consulted, ECHO ordered, added plavix w/ load, 07/20/18 Cardiac catheterization w/ left main coronary artery with calcification and mild disease, left anterior descending artery with ostial 70-80% stenosis, diffuse distal disease in the LAD noted, dominant left circumflex artery with high-grade mid circumflex artery stenosis, nondominant right coronary artery with mild diffuse disease, normal left ventricular end- diastolic pressure, reduced left ventricular systolic function with mild anterior hypokinesis and apical hypokinesis moderate, calcification noted of the aorta and the proximal left anterior descending artery. Based on these findings, discussed with Cardiology and recommendation for consideration for CABG. Transfer arranged to [facility] for evaluation per Dr. Yu, CT Surgeon. ASA, NG, morphine. (2) Hypertensive Emergency: Improved BPs. Continue cardiology altered regimen including Norvasc, lisinopril, atenolol, PRN IV hydralazine. (3) Diabetes mellitus type II: Not on regimen, HgbA1c 6.6%, ADA diet, accu checks w/ ISS, nutrition consultation for education and teaching. Given cardiac catheterization will need to delay start metformin. (4) Hyperlipidemia: Continue home statin regimen. AM FLP w/ TG 208, TChol 178, LDL 96, VLDL 42, HDL 40. (5) Hx Laryngeal CA: s/p radiation. (6) Chronic COPD: ATC duonebs, PRN albuterol, HOB, IS parameters. (7) History of Tobacco use: Encourage continued tobacco cessation. (8) RLS: Continue home mirapex regimen. (9) GERD: PPI. (10) DVT Prophylaxis: SCDs, therapeutic lovenox x 1.
--- NOTE | 2018-07-20 08:14 | PCM.PN.CARD ---
Subjectve: Patient seen and evaluated Objective: Vital Signs Temp Pulse Resp BP Pulse Ox 98.1 F 83 18 153/90 H 97 07/20/18 05:59 07/20/18 05:59 07/20/18 05:59 07/20/18 05:59 07/20/18 07:00 Oxygen Flow Rate (L/min) 1 Oxygen Delivery Method Nasal Cannula Weight: 236 lb 15.951 oz Body Mass Index (BMI) 38.2 Intake and Output for Last 24 Hours 07/18/18 07/19/18 07/20/18 23:59 23:59 23:59 Intake Total 1140 / 1140 1005 / 1005 Balance 1140 / 1140 1005 / 1005 General: Awake, Alert, Oriented x 3 HEENT: PERRL, EOMI, Sclera Non Icteric Neck: Supple, Good ROM, No Lymph Node Enlargement Lungs: Clear to auscultation Cardiovascular: Regular Rhythm, Normal S1, Normal S2, No Murmurs, No Rubs, No Gallops Vascular: No Carotid Bruits, Normal Femoral Pulses, Normal Radial Pulses, Normal Dorsalis Pedal Pulse, Normal Posterior Tibial Pulses Abdomen: Bowel Sounds Present, Soft, Non Tender, No HSM, No Organomegaly Extremities: No Cyanosis, No Clubbing, No edema Musculoskeletal: No Erythema Skin: No Rashes Lymphatic: No Lymph Node Enlargement Neurological: No Focal Motor or Sensory Deficit Psych/Mental Status: Appropriate 07/19/18 07:40: Troponin I 0.265 H 07/19/18 10:25: Troponin I 0.635 H* 07/20/18 00:50: Urine Color Yellow, Urine Clarity Clear, Urine pH 6.5, Ur Specific [place] 1.010, Urine Protein 15 H, Urine Glucose (UA) Normal, Urine Ketones Negative, Urine Occult Blood Negative, Urine Nitrite Negative, Urine Bilirubin Negative, Urine Urobilinogen Normal, Ur Leukocyte Esterase Negative, Urine RBC 0 SEEN, Urine WBC 0 SEEN 07/20/18 05:00: Sodium 136, Potassium 4.3, Chloride 103, Carbon Dioxide 24.0, Anion Gap 9, BUN 18, Creatinine 1.17, Est GFR (MDRD) Af Amer 80, Est GFR (MDRD) Non-Af 66, BUN/Creatinine Ratio 15.4, Glucose 140 H, Calcium 8.9, Triglycerides 208 H, Cholesterol 178, LDL Cholesterol 96, VLDL Cholesterol 42 H, HDL Cholesterol 40 07/20/18 05:00: WBC 5.2, RBC 4.29 L, Hgb 14.1, Hct 41.8, MCV 97.4 H, MCH 32.9 H, MCHC 33.7, RDW 12.8, RDW Differential 44.6 H, Plt Count 145 L, MPV 10.5, Immature Gran % (Auto) 0.400, Neut % (Auto) 55.6, Lymph % (Auto) 26.3, [place] % (Auto) 12.3 H, Eos % (Auto) 4.8, Baso % (Auto) 0.6, Absolute Neuts (auto) 2.9, Total Counted Not Reportable 07/20/18 05:00: PT 13.9, INR 1.1, APTT 36.0 Rhythm: EKG: ECHO: Stress Test: Cardiac Cath: PCI: CT Surgery: Holter monitor: EPS: PPM: CXR: Chest CT Scan: Medical Necessity - Tobacco Use Smoking Status: Former smoker Tobacco Use: Cigarettes Assessment/Plan 1. Hypertensive emergency Patient presented to the emergency room with markedly elevated blood pressure and EKG changes. It appears to be much improved at this time. Recommendation will be to aggressively treat blood pressure and will recommend the addition of amlodipine 5 mg a day to his current regimen Continue beta-keyur Obtain echocardiogram in a.m. to assess left ventricular function 2. Abnormal cardiac enzymes - NSTEMI He does have evidence of abnormal cardiac enzymes suggestive of myocardial necrosis. Cardiac catheterization demonstrated the following: Left main coronary artery with calcification and mild disease. Left anterior descending artery with ostial 70-80% stenosis Diffuse distal disease in the LAD noted Dominant left circumflex artery with high-grade mid circumflex artery stenosis Nondominant right coronary artery with mild diffuse disease Normal left ventricular end-diastolic pressure Reduced left ventricular systolic function with mild anterior hypokinesis and apical hypokinesis moderate Calcification noted of the aorta and the proximal left anterior descending artery Based on the above angiographic findings the patient will be recommended to have coronary artery bypass surgery. Arrangements to transfer the patient would be made shortly. Thank you for allowing me to participate in the care of your patient. Please don't hesitate to call if any issues arise
--- NOTE | 2018-07-20 08:17 | PN.CARD_ITS ---
Subjectve: Patient seen and evaluated Objective: Vital Signs Temp Pulse Resp BP Pulse Ox 98.1 F 83 18 153/90 H 97 07/20/18 05:59 07/20/18 05:59 07/20/18 05:59 07/20/18 05:59 07/20/18 07:00 Oxygen Flow Rate (L/min) 1 Oxygen Delivery Method Nasal Cannula Weight: 236 lb 15.951 oz Body Mass Index (BMI) 38.2 Intake and Output for Last 24 Hours 07/18/18 07/19/18 07/20/18 23:59 23:59 23:59 Intake Total 1140 / 1140 1005 / 1005 Balance 1140 / 1140 1005 / 1005 General: Awake, Alert, Oriented x 3 HEENT: PERRL, EOMI, Sclera Non Icteric Neck: Supple, Good ROM, No Lymph Node Enlargement Lungs: Clear to auscultation Cardiovascular: Regular Rhythm, Normal S1, Normal S2, No Murmurs, No Rubs, No Gallops Vascular: No Carotid Bruits, Normal Femoral Pulses, Normal Radial Pulses, Normal Dorsalis Pedal Pulse, Normal Posterior Tibial Pulses Abdomen: Bowel Sounds Present, Soft, Non Tender, No HSM, No Organomegaly Extremities: No Cyanosis, No Clubbing, No edema Musculoskeletal: No Erythema Skin: No Rashes Lymphatic: No Lymph Node Enlargement Neurological: No Focal Motor or Sensory Deficit Psych/Mental Status: Appropriate 07/19/18 07:40: Troponin I 0.265 H 07/19/18 10:25: Troponin I 0.635 H* 07/20/18 00:50: Urine Color Yellow, Urine Clarity Clear, Urine pH 6.5, Ur Specific [place] 1.010, Urine Protein 15 H, Urine Glucose (UA) Normal, Urine Ketones Negative, Urine Occult Blood Negative, Urine Nitrite Negative, Urine Bilirubin Negative, Urine Urobilinogen Normal, Ur Leukocyte Esterase Negative, Urine RBC 0 SEEN, Urine WBC 0 SEEN 07/20/18 05:00: Sodium 136, Potassium 4.3, Chloride 103, Carbon Dioxide 24.0, Anion Gap 9, BUN 18, Creatinine 1.17, Est GFR (MDRD) Af Amer 80, Est GFR (MDRD) Non-Af 66, BUN/Creatinine Ratio 15.4, Glucose 140 H, Calcium 8.9, Triglycerides 208 H, Cholesterol 178, LDL Cholesterol 96, VLDL Cholesterol 42 H, HDL Cholesterol 40 07/20/18 05:00: WBC 5.2, RBC 4.29 L, Hgb 14.1, Hct 41.8, MCV 97.4 H, MCH 32.9 H, MCHC 33.7, RDW 12.8, RDW Differential 44.6 H, Plt Count 145 L, MPV 10.5, Immature Gran % (Auto) 0.400, Neut % (Auto) 55.6, Lymph % (Auto) 26.3, [place] % (Auto) 12.3 H, Eos % (Auto) 4.8, Baso % (Auto) 0.6, Absolute Neuts (auto) 2.9, Total Counted Not Reportable 07/20/18 05:00: PT 13.9, INR 1.1, APTT 36.0 Rhythm: EKG: ECHO: Stress Test: Cardiac Cath: PCI: CT Surgery: Holter monitor: EPS: PPM: CXR: Chest CT Scan: Medical Necessity - Tobacco Use Smoking Status: Former smoker Tobacco Use: Cigarettes Assessment/Plan 1. Hypertensive emergency * Patient presented to the emergency room with markedly elevated blood pressure and EKG changes. It appears to be much improved at this time. * Recommendation will be to aggressively treat blood pressure and will recommend the addition of amlodipine 5 mg a day to his current regimen * Continue beta-keyur * Obtain echocardiogram in a.m. to assess left ventricular function 2. Abnormal cardiac enzymes - NSTEMI * He does have evidence of abnormal cardiac enzymes suggestive of myocardial necrosis. * Cardiac catheterization demonstrated the following: Left main coronary artery with calcification and mild disease. Left anterior descending artery with ostial 70-80% stenosis Diffuse distal disease in the LAD noted Dominant left circumflex artery with high-grade mid circumflex artery stenosis Nondominant right coronary artery with mild diffuse disease Normal left ventricular end-diastolic pressure Reduced left ventricular systolic function with mild anterior hypokinesis and apical hypokinesis moderate Calcification noted of the aorta and the proximal left anterior descending artery Based on the above angiographic findings the patient will be recommended to have coronary artery bypass surgery. Arrangements to transfer the patient would be made shortly. * Thank you for allowing me to participate in the care of your patient. Please don't hesitate to call if any issues arise
[2018-07-20 08:43] LABS: Hemoglobin A1c 6.6 % (4.2-6.3)
--- NOTE | 2018-07-20 09:20 | CL.D_ITS ---
Patient Name: GERMAIN PICHARDO Study Date: 07/20/2018 Performing: Zaki Her MD Ht: 66 inches 168 cm : 1950 Wt: 238.4 lbs 108 kg Age: 67 Gender: male BSA: 2.16 PROCEDURE(S) PERFORMED [id number] CLINICAL PROFILE AND INDICATIONS Indications: Suspected CAD Heart Failure: None Stress/Imaging Stress/Image Study Performed: No CONCLUSIONS Severe two-vessel disease involving the ostial LAD, severely diseased mid to distal LAD and a dominan t left circumflex artery with severe mid segment disease. Reduced left ventricular ejection fraction RECOMMENDATIONS Surgery consult for valvular disease DESCRIPTION OF PROCEDURE The patient arrived to the procedure lab. The risks and benefits of the procedure as well as a full d escription of our services here and current unavailability of surgical backup were fully explained to the patient and/or their significant other prior to the catheterization. The Timeout was completed, verifying the correct patient and procedure. The patient's procedural site was prepped and draped in the usual fashion. Local anesthetic was given subcutaneously to right radial region with Lidocaine 2% . Using a modified Seldinger technique, Right Coronary Artery selective angiography was performed i n multiple views using a 5 Fr. 4.0 [place] catheter. Left Coronary Artery selective angiography was per formed in multiple views using a 5 Fr. 4.0 [place] catheter. Right Coronary Artery selective angiograph y was then performed in multiple views using a 5 Fr. 3DRC (Wander) catheter. Right Coronary Artery selective angiography was then performed in multiple views using a 5 Fr. JR 5 catheter. Left Ventriculography was performed in LOZ[place]O projection using a 5 Fr. [place] catheter. LV to AO pullba ck pressures were then recorded.The arterial sheath was pulled and a TR Band was applied for hemostas is CORONARY ANGIOGRAPHY DOMINANCE: Left Dominant LEFT HEART ASSESSMENT Left Ventricular Ejection Fraction: by LV Gram 35 % Anterior Hypokinesis - Moderate. Apical Hypokinesis - Moderate Depressed Left Ventricular systolic function LEFT MAIN: Moderate calcification, Non-obstructive LEFT ANTERIOR DECENDING ARTERY: OSTIAL LAD: 75 % Stenosis MID LAD: Diffusely diseased up to 80 % CIRCUMFLEX ARTERY: MID CIRC: 80 % Stenosis DISTAL CIRC: Mild luminal irregularities less than 30% RIGHT CORONARY ARTERY: Mild luminal irregularities less than 30% AORTIC ROOT: Dilated COMPLICATIONS No Complications PROCEDURE MEDICATIONS Fentanyl 50 mcg IV Versed 1 mg IV Versed 1 mg IV Oxygen: 2 L/min via nasal cannula Heparin diluted in 23cc Heparinized saline. Patient given 10cc IA of this solution. 07/20/2018 07:35: 59 Verapamil 2.5mg, Ntg 100mcgs, 2000 units of Heparin diluted in 23cc Heparinized saline. Patient give n 10cc IA of this solution. 07/20/2018 07:35:59 SUMMARY OF HEMODYNAMIC DATA Time AIR REST ECG 07:16:31 AO 106/61 (78) SA 07:38:26 AO 137/80 (103) 07:53:30 LV 145/8, 16 08:06:20 LV 142/7, 13 08:06:26 LV 152/13, 21 08:09:14 LV 152/15, 22 08:09:21 LVp 151/18, 25 08:09:25 AOp 149/80 (110) 08:09:30 Signed By Zaki Her MD On 07/20/2018 09:19:29 Zaki Her MD
--- NOTE | 2018-07-20 09:41 | CASEMGMT ---
According to [facility] website, the following are in-network tertiary facilities: [facility], [facility], [facility], [facility], [facility], [facility], [facility], [facility], [facility], and . [facility] ODONNELL [facility]
--- NOTE | 2018-07-20 10:15 | PCM.DC.SUM ---
Discharge Date and Diagnosis - Problem List Patient Problems: Active and Suspected Problems Unstable angina (Acute) Date of Admission: 07/19/18 Date of Discharge: 07/20/18 - Primary Discharge Diagnosis Active and Suspected Problems (1) Chest Pain w/ secondary to Unstable Angina w/ Acute NSTEMI w/ Hypertensive Emergency w/ CAD (07/20/18 Cardiac catheterization w/ left main coronary artery with calcification and mild disease, left anterior descending artery with ostial 70-80% stenosis, diffuse distal disease in the LAD noted, dominant left circumflex artery with high-grade mid circumflex artery stenosis, nondominant right coronary artery with mild diffuse disease, normal left ventricular end-diastolic pressure, reduced left ventricular systolic function with mild anterior hypokinesis and apical hypokinesis moderate, calcification noted of the aorta and the proximal left anterior descending artery) (2) Hypertensive Emergency (3) Diabetes mellitus type II (4) Hyperlipidemia (5) Hx Laryngeal CA s/p radiation. (6) Chronic COPD (7) History of Tobacco use (8) RLS (9) GERD - Secondary Discharge Diagnosis Chronic Problems HTN (hypertension) (Chronic) Diabetes (Chronic) Hospital Course and Treatment Dr. Her Cardiology Operations: None Procedures: 2-D Echocardiogram, Cardiac catheterization, EKG Summary of Care Provided: The patient is a 67 y/o M w/ PMHx: HTN, HLD, Obesity, Diabetes mellitus type II, Chronic COPD, Hx Laryngeal CA s/p radiation who presented to the [facility] ED on 07/19/18 with history of progressively worsening, aching, substernal chest discomfort rating to bilateral upper extremity and jaw times 1 week, improving with rest, worsening with activity. EKG in ED w/ minimal ST elevation V2 and ST depression I, aVL, V2-V5, T wave flattening V6, CXR w/ chronic COPD changes. Trop elevated, 0.033->0.265->0.635. Admitted to PCU, maintained on a monitored bed, continued serial cardiac enzymes and EKGs as noted. ECHO pending. Continue medical management w/ asa, plavix w/ load, BB, norvasc, lisinopril, statin w/ AM FLP w/ TG 208, TChol 178, LDL 96, VLDL 42, HDL 40.. Therapeutic lovenox administered. Cardiology consulted, ECHO ordered, added plavix w/ load, 07/20/18 Cardiac catheterization w/ left main coronary artery with calcification and mild disease, left anterior descending artery with ostial 70-80% stenosis, diffuse distal disease in the LAD noted, dominant left circumflex artery with high-grade mid circumflex artery stenosis, nondominant right coronary artery with mild diffuse disease, normal left ventricular end-diastolic pressure, reduced left ventricular systolic function with mild anterior hypokinesis and apical hypokinesis moderate, calcification noted of the aorta and the proximal left anterior descending artery. Based on these findings, discussed with Cardiology and recommendation for consideration for CABG. Transfer arranged to [facility] for evaluation per Dr. Yu, CT Surgeon. Additionally during admission, noted DM hx, not on regimen, obtained HgbA1c 6.6%, ADA diet, accu checks w/ ISS, nutrition consultation for education and teaching. Given cardiac catheterization will need to delay start metformin. Patient noted quitting tobacco use ~ 2 weeks prior, encouraged continued cessation and advised spouse as well as 2nd hand tobacco use concurrently. Patient Problems: Active and Suspected Problems Unstable angina (Acute) - Physical Exam Vital Signs Temp Pulse Resp BP Pulse Ox 97.8 F 72 18 148/77 H 99 07/20/18 09:40 07/20/18 09:40 07/20/18 09:40 07/20/18 09:40 07/20/18 09:40 Oxygen Flow Rate (L/min) 2 Oxygen Delivery Method Nasal Cannula Weight: 236 lb 15.951 oz Body Mass Index (BMI) 38.2 Intake and Output for Last 24 Hours 07/18/18 07/19/18 07/20/18 23:59 23:59 23:59 Intake Total 1140 / 1140 1005 / 1005 Balance 1140 / 1140 1005 / 1005 Laboratory Tests Past 24 Hrs 07/19/18 07/20/18 07/20/18 10:25 00:50 05:00 WBC RBC Hgb Hct MCV MCH MCHC RDW RDW Differential Plt Count MPV Immature Gran % (Auto) Neut % (Auto) Lymph % (Auto) [place] % (Auto) Eos % (Auto) Baso % (Auto) Absolute Neuts (auto) Absolute Lymphs (auto) Total Counted PT INR APTT Sodium 136 Potassium 4.3 Chloride 103 Carbon Dioxide 24.0 Anion Gap 9 BUN 18 Creatinine 1.17 Estim Creat Clear Calc 56.04 Est GFR (MDRD) Af Amer 80 Est GFR (MDRD) Non-Af 66 BUN/Creatinine Ratio 15.4 Glucose 140 H Hemoglobin A1c Calcium 8.9 Troponin I 0.635 H* Triglycerides 208 H Cholesterol 178 LDL Cholesterol 96 VLDL Cholesterol 42 H HDL Cholesterol 40 Urine Color Yellow Urine Clarity Clear Urine pH 6.5 Ur Specific [place] 1.010 Urine Protein 15 H Urine Glucose (UA) Normal Urine Ketones Negative Urine Occult Blood Negative Urine Nitrite Negative Urine Bilirubin Negative Urine Urobilinogen Normal Ur Leukocyte Esterase Negative Urine RBC 0 SEEN Urine WBC 0 SEEN Ur Squamous Epith Cells 0 SEEN Urine Bacteria 0 SEEN Urine Mucus 0 SEEN 07/20/18 07/20/18 07/20/18 05:00 05:00 05:00 WBC 5.2 RBC 4.29 L Hgb 14.1 Hct 41.8 MCV 97.4 H MCH 32.9 H MCHC 33.7 RDW 12.8 RDW Differential 44.6 H Plt Count 145 L MPV 10.5 Immature Gran % (Auto) 0.400 Neut % (Auto) 55.6 Lymph % (Auto) 26.3 [place] % (Auto) 12.3 H Eos % (Auto) 4.8 Baso % (Auto) 0.6 Absolute Neuts (auto) 2.9 Absolute Lymphs (auto) 1.37 Total Counted Not Reportable PT 13.9 INR 1.1 APTT 36.0 Sodium Potassium Chloride Carbon Dioxide Anion Gap BUN Creatinine Estim Creat Clear Calc Est GFR (MDRD) Af Amer Est GFR (MDRD) Non-Af BUN/Creatinine Ratio Glucose Hemoglobin A1c 6.6 H Calcium Troponin I Triglycerides Cholesterol LDL Cholesterol VLDL Cholesterol HDL Cholesterol Urine Color Urine Clarity Urine pH Ur Specific [place] Urine Protein Urine Glucose (UA) Urine Ketones Urine Occult Blood Urine Nitrite Urine Bilirubin Urine Urobilinogen Ur Leukocyte Esterase Urine RBC Urine WBC Ur Squamous Epith Cells Urine Bacteria Urine Mucus POC Glucose 07/20/18 07/19/18 07/19/18 06:10 23:06 17:03 POC Glucose 145 H 127 H 127 H 07/19/18 11:58 POC Glucose 180 H Home Medications: Medications to take at Discharge Albuterol Aerosols [Ventolin Aerosols] 2.5 mg INHALATION Q4HWA.RT 07/19/18 Albuterol IH (ProAir) [Proair Hfa (SP)Vent Pts] 1 puff INHALATION Q4H PRN PRN 07/19/18 Aspirin [Aspir 81] 81 mg PO DAILY 07/19/18 Atenolol 50 mg PO DAILY 07/19/18 Atorvastatin Calcium 10 mg PO DAILY 07/19/18 Doxazosin Mesylate [Cardura] 1 mg PO DAILY 07/19/18 Furosemide [Lasix] 20 mg PO DAILY PRN 07/19/18 Lisinopril 20 mg PO DAILY 07/19/18 Loratadine 10 mg PO DAILY PRN 07/19/18 Meloxicam 15 mg PO DAILY 07/19/18 Metformin HCl 500 mg PO DAILY 07/19/18 Omeprazole [Prilosec] 20 mg PO DAILY 07/19/18 Ropinirole HCl 0.25 mg PO QHS 07/19/18 Primary Care Physician: Yanick Rashid MD [Primary Care Provider] - Disposition: Acute care Hospital Minutes spent on discharge:: 35 Patient Condition:: Stable Medical Necessity - Tobacco Use Smoking Status: Former smoker Tobacco Use: Cigarettes Meaningful Use Info Meaningful Use Diagnoses (Choose all that apply): AMI - AMI Aspirin given w/in 24hrs of arrival?: Yes ASA at discharge?: Yes Statins at discharge?: Yes Jamal/ARB at discharge?: Yes Beta Yeni at discharge?: Yes Done w/ Acute [place] measure.: Yes Code Visit Inpatient E&M: [id number] Disch Hosp
[2018-07-20] MEDS: Lisinopril 10 MG Tablet PO (10:23)
[2018-07-20] MEDS: Pantoprazole Sodium 20 MG Tablet PO (10:23)
[2018-07-20 11:05] LABS: Bedside Glucose 137 mg/dL (70-110)
[2018-07-20] MEDS: Ipratropium/Albuterol Sulfate 3 ML AMPUL.NEB INHALATION (14:59)
[2018-07-20 16:41] LABS: Bedside Glucose 108 mg/dL (70-110)
== END 2018-07-20 17:38 | disposition short-term general hospital (02) | DRG 281 ==
LOC: ED 05:36 → PCU 05:40
PROVIDERS: Internal Medicine; Internal Medicine Cardiovascular Disease; Admitting Provider Hospitalist; Emergency Provider Emergency Medicine; Family Provider Family Medicine; PCP Family Medicine; Referring Provider Hospitalist; Visit Provider Family Medicine
DX: I21.4 Non-ST elevation (NSTEMI) myocardial infarction (principal); I16.1 Hypertensive emergency; I25.110 Atherosclerotic heart disease of native coronary artery with unstable angina pectoris; E11.9 Type 2 diabetes mellitus without complications; J44.9 Chronic obstructive pulmonary disease, unspecified; E78.5 Hyperlipidemia, unspecified; G25.81 Restless legs syndrome; K21.9 Gastro-esophageal reflux disease without esophagitis; I10 Essential (primary) hypertension; Z85.21 Personal history of malignant neoplasm of larynx; Z87.891 Personal history of nicotine dependence; Z92.3 Personal history of irradiation; Z79.84 Long term (current) use of oral hypoglycemic drugs
CPT/HCPCS: 36415; 71045; 80048; 80061; 81001; 82962; 83036; 84484; 85025; 85610; 85730; 93005; 93306; 93458; 94640; 97161; 97165; 97802; 99152; 99153; 99285; 99406; J7030; Q9957; A4216; C1769; C1894; C8929; Q9967

== ENCOUNTER → 2018-08-27 08:44 | Outpatient (CLI) | payer MEDICARE, SELFPAY ==
[2018-08-24 10:47] VITALS: BMI 38.8
--- NOTE | 2018-08-27 08:52 | PCM.CR.ITP ---
General Information - General Information Admitting Diagnosis: CAB X 3 Special Needs: FORMER SMOKER QUIT 07/21/2018; ABSTAINING AT THE PRESENT TIME - Education/Goals Barriers to Learning: Vision Impairment Individual Counseling: Initial Assessment: Nicotine/Smoking, Abnormal Cholesterol Levels, High Blood Pressure, Overweight/Obesity, Diabetes, Metabolic Syndrome (as evidenced by 3 of 5 A-E below), A. Fasting Blood Sugar >100, Hypertension Cardiac Rehabilitation Goals: 1. Maintain the individual as the primary focus of care. 2. To improve the patient's quality of life. 3. Identification of cardiac risk factors and provide cardiac risk factor management. 4. Enhance the psychosocial status of the patient. 5. Reconditioning enough to allow the patient to resume customary activities. 6. Control symptoms of cardiac disease Scale for measuring improvement of personal goals: Enter appropriate number in Comments. 2 = Unchanged. 3 = Slightly Better. 4 = Moderate Improvement. 5 = Met my Goal Personal Goals: Initial Assessment: Improve energy level, Get back to work, or to resume activities faster, Improve knowledge of cardiac disease, Improve muscle strength and endurance, Improve diet and eating habits (eat healthier), Control risk factors (learn risk factor modification) Exercise - Initial Assessment - Visit Date of Eval: 08/27/18 Session #:: 0 - START August - Stages of Change Stages of Change:: Action - Physician Prescribed Exercise Modalities: Treadmill, Airdyne, NuStep Frequency (days/week): 3x/week for 12 weeks [36 sessions] Duration (Minutes):: 30-45 MIN Intensity: 60-80% age predicted maximum heart rate reserve METs - Progression: 0.5-1.0 MET, RPE 11-14 WEEK: 2.5 Target Heart Rate:: 100-131 - Hypertension Do any of the following apply?: Yes, Medication Resting Blood Pressure:: 110/60 - Intervention Home Exercise/Activity Goal:: Moderate Exercise 30 min/day x 5 days/wk - Education Goals:: Warm-up, RPE COLTON Scale, S/S, Safe Exercise, Self-Monitoring - Exercise Program Goals Exercise Program Goals: Aerobic Activity >30 min Nutrition - Initial Assessment - Program Goals Nutrition Program Goals: LDL <70. Total Cholesterol <200. HDL >45. Triglycerides <150. HgbA1C <7%. BMI <25 - Visit Date of Assessment:: 08/27/18 - Stages of Change Stages of Change:: Action - Diabetes Diabetes:: Yes Insulin: No Non-Insulin Dependent?: Yes Do you monitor your blood sugar at home?: Yes - Weight Management Height: 5 ft 6 in Weight:: 222 lb Body Fat %:: 35.85 - Intervention Referral to dietitian:: Yes Referral to Diabetic Clinic:: No - Patient declined diabetic teaching Will attend diet classes:: No - Education Gave educational materials for:: Signs & symptoms of hypoglycemia, Signs & symptoms of hyperglycemia, Relate diabetes to coronary artery disease, Healthy eating Tobacco - Initial Assessment - Program Goals Tobacco Program Goals: Complete smoking cessation. Attend education classes. Improve Knowledge Test score - Stage of Change Stages of Change:: Action - Learning Barriers Learning Barriers: Vision, Ready to Learn - Family Support Do you have family support?: Yes - Tobacco Use Tobacco Use: Cigarettes How long ago did you quit using tobacco products?: Less than 6 months ago How many cigarettes do you smoke per day?: 0 - quit smoking 07/21/2018 has abstained from smoking Do you use smokeless tobacco?: No - Intervention Smoking Cessation Referral:: Yes - assist patient in abstaining from cigarette smoking Individual Education/Counseling:: No Education Schedule Given:: Yes - Education Gave educational material for:: Tobacco triggers, Coronary artery disease, Risk factors, Sexuality, Medical compliance, Cardiac A&P, Angina signs & symptoms Psychosocial - Initial Assess - Target Goals Target Goals: Assess presence or absence of depression. Using a valid screening tool, maximizes coping skills. Positive support system - Stages of Change Stages of Change:: Action - Psychosocial Test Tool Used:: HANDS Depression Questionnaire - Intervention PS - Interventions: Yes Attend Stress Management Classes, No Referral to Mental Health, No Referral to [facility] Case Management, No Referral to Physician, No Uses Stress Management Skills - Education Gave educational materials for:: Coping techniques, Signs & symptoms of depression, Stress management, Relaxation techniques - Patient/Program Goal Preventative Medication(s):: Aspirin, Clopidogrel, Beta keyur, Statin/lipid - Assistive Devices Assistive Devices:: None Fall Risk Assessed:: Yes Patient Health Questionnaire Initial Assessment 1. Little interest or pleasure in doing things: More than half the days 2. Feeling down, depressed, or hopeless: Several days 3. Trouble falling or staying asleep, or sleeping too much: Nearly every day 4. Feeling tired or having little energy: Nearly every day 5. Poor appetite or overeating: More than half the days 6. Feeling bad about yourself -- or that you are a failure or have let yourself or your family down: Several days 7. Trouble concentrating on things, such as reading the newspaper or watching television: Several days 8. Moving or speaking so slowly that other people could have noticed. Or the opposite - being so fidgety or restless that you have been moving around a lot more than usual: Not at all 9. Thoughts that you would be better off , or of hurting yourself in some way: Not at all Total Score: 13 JOSSUE-Q SV Test - Statements CAD is a disease of the arteries in the heart: False Examples of risk factors for heart disease: True Angina is chest pain or discomfort: True The benefits of resistance training include: True Eating more meat and dairy products: False Anti-platelet medications such as aspirin are important: True The only effective way to manage stress: False An exercise warm-up slowly increases heart rate: True Prepared, processed foods usually have high sodium: True Depression is common after a heart attack: True The statin medications lower cholesterol: True To control blood pressure, lower the amount of sodium: True If someone gets chest discomfort during walking: False Transfats are partially hydrogenated vegetable oils: True Sleep apnea that is not treated increases the risk: False To control cholesterol, one should become a vegetarian: False Someone knows if he/she is exercising at the right level: True Diabetes cannot be prevented with exercise & health eating: False Stress is a large risk for heart attack: True A diet that can help lower blood pressure is rich in: True - Total Score Total Correct Responses: 20 Self-Efficacy Initial Assessment We would like to know how confident you are in doing certain activities. Please select your confidence level for:: Select your confidence level for the following using the scale 1-10 where 1 is not at all confident and 10 is totally confident. Your score is the average of all 6 responses. Fatigue: How confident are you that you can keep the fatigue caused by your disease from interfering with the things you want to do? Select Number: 10 Physical Discomfort or Pain: How confident are you that you can keep the physical discomfort or pain of your disease from interfering with the things you want to do? Select Number: 10 Emotional Distress: How confident are you that you can keep the emotional distress caused by your disease from interfering with the things you want to do? Select Number: 10 Other Symptoms or Health Problems: How confident are you that you can keep other symptoms or health problems from interfering with the things you want to do? Select Number: 10 Different Tasks and Activities: How confident are you that you can do the different tasks and activities needed to manage your health condition so as to reduce your need to see a doctor? Select Number: 10 Medication: How confident are you that you can do things other than just taking medication to reduce how much your illness affects your everyday life? Select Number: 10 Total Score:: 10 Nutrition Survey - Nutrition Survey Instructions Scoring Instructions: Scoring is as follows: Yes = 1 points. No = 0 point. Patient score that is >/=12 is considered to be at potential nutritional risk and could benefit from a referral to a registered dietitian. - Nutrition Survey Initial Have you lost >10 lbs over the past 2 months without trying?: Yes Are you following a special diet at home for diabetes, low fat, or low salt?: No Are you interested in meeting with a dietitian for help understanding your diet?: No Do you eat less than 3 meals a day?: No Do you eat fatty meats (medellin, sausage, ribs, etc), fried foods, desserts, large amounts of salad dressings, margarine, butter, or cheese most days?: Yes Do you have food allergies? [Enter types in comment field]: No Do you eat in restaurants more than 3 times a week?: No Do you season food with salt, seasoning salt, or garlic salt?: Yes Do you used canned, boxed, frozen meals, or soups, seasoning packets?: Yes Total Score:: 4
--- NOTE | 2018-08-27 08:52 | PCM.CR.HP2 ---
CR - History & Physical - General Arrival date:: 08/27/18 Arrival time:: 08:47 Date of Referral:: 08/19/18 Date of CR Evaluation:: 08/27/18 Referring Physician: Dr. Shreyas Shields/ Dr. Zaki Her Primary Diagnosis: CABG x 3 - History of Present Cardiac Event Onset Date: Enter Onset Date of cardiac illnesses in Comment field below Coronary Artery Bypass Graft:: Yes - 07/27/2018 Heart Failure EF <35%:: No - 35% per-operative - Medications Home Medications: Ambulatory Orders Medication Instructions Recorded Albuterol Aerosols [Ventolin 2.5 mg INHALATION Q4HWA.RT 07/19/18 Aerosols] Albuterol IH (ProAir) [Proair Hfa 1 puff INHALATION Q4H PRN PRN 07/19/18 (SP)Vent Pts] Aspirin [Aspir 81] 81 mg PO DAILY 07/19/18 Atorvastatin Calcium 40 mg PO DAILY 07/19/18 Furosemide [Lasix] 20 mg PO DAILY PRN 07/19/18 Lisinopril 20 mg PO DAILY 07/19/18 Loratadine 10 mg PO DAILY PRN 07/19/18 Metformin HCl 500 mg PO DAILY 07/19/18 Omeprazole [Prilosec] 20 mg PO DAILY 07/19/18 Ropinirole HCl 0.25 mg PO QHS 07/19/18 Acetaminophen [Tylenol] 650 mg PO Q4H PRN PRN 08/27/18 Albuterol Sulfate [Albuterol 18 gm IH 08/27/18 Sulfate Hfa] Albuterol Sulfate [Proventil Hfa] 08/27/18 Clopidogrel Bisulfate [Plavix] 75 mg PO DAILY 08/27/18 Guaifenesin [Mucinex] 600 mg PO BID 08/27/18 Melatonin/Pyridoxine HCl (B6) 1 each PO 08/27/18 [Melatonin 3 mg Tablet] Metoprolol Succinate [Kapspargo 50 mg PO 08/27/18 Sprinkle] Polyethylene Glycol 3350 [Miralax] 17 gm PO QHS 08/27/18 Potassium Chloride [K-Dur] 20 meq PO DAILY PRN 08/27/18 - Allergies Allergies/Adverse Reactions: Allergies azithromycin [From Zithromax] Allergy (Verified 07/19/18 04:23) Hives diltiazem Allergy (Verified 07/19/18 04:23) Swelling Penicillins [PCN] Allergy (Verified 07/19/18 04:23) Anaphylaxis tetracycline Allergy (Verified 07/19/18 04:23) Hives amlodipine Adverse Reaction (Verified 07/19/18 10:03) Other cramping in feet? Patient unsure nifedipine Adverse Reaction (Verified 07/19/18 04:23) Upset Stomach simvastatin Adverse Reaction (Verified 07/19/18 04:23) Other - Sleep Disorder Evaluation Hx of Sleep Apnea: Yes Do you snore loudly (louder than talking or can be heard through closed doors)?: Yes Do you often feel tired/ fatigued/ sleepy during daytime?: Yes Has anyone observed you stop breathing during sleep?: Yes - girlfriend will shake him wake him up and have him roll over. History of Hypertension (for STOP score): Yes STOP Results: Positive Advanced Directives - Advanced Directives Power of Electrical Engineering Drafting Officer: No Living Will: No Advance Directives Information Provided: Yes Advance Directives on File: No DNR Order?:: No - MOLST See MOLST form: No Past Medical History - Past Medical Illness Medical History: Past Medical History (Last Updated 08/27/18 @ 09:38 by Fabrizio Jaime CRT, TELEPHONE DIAPHRAGM ASSEMBLER, BS) Atherosclerotic heart disease of [place] coronary artery without angina pectoris (Chronic) I25.10 Severe two-vessel disease involving the ostial LAD, severely diseased mid to distal LAD and a dominant left circumflex artery with severe mid segment disease. Reduced left ventricular ejection fraction RECOMMENDATIONS:Surgery consult for valvular disease per Dr. Her 07/20/18 Pulmonary hypertension (Chronic) I27.20 Moderate per echo 07/20/18: RVSP 53 mmhg Nonrheumatic tricuspid (valve) insufficiency (Chronic) I36.1 1-2+ per echo Coronary artery disease involving coronary bypass graft of [place] heart I25.810 laryngoscopy, direct, op, scop, exc tumr - Past Surgical History Surgical History: - - Laryngeal biopsy - Family History Summary Family History: Family History (Last Updated 08/27/18 @ 09:37 by Fabrizio Jaime CRT, TELEPHONE DIAPHRAGM ASSEMBLER, BS) Other CAD (coronary artery disease) Cancer Diabetes Gall stones Hypertension Social History - Smoking History Smoking Status: Former smoker Years Smokin Packs Smoked per Day: 2 Hx Smoking Cessation Date: 07/21/2018 Hx Tobacco Use: Yes Hx Smoking Exposure: Yes - Alcohol Use Alcohol Usage: No - Substance Abuse Hx Substance Use: No - Occupation Occupation (List type of work in comments):: Retired - Hobbies, Recreation, Social Activities Hobbies: Other - work on old cars, fishing and hunting. Recreational Activities: I am able to engage in most, but not all activities Social Environment - Status Marital Status: Single - Current Living Arrangements Living Environment:: Spouse - significant other - Children How many children do you have?: 0 Do any of your children live nearby?: No - Safety Do you feel safe in your surroundings?: Yes - Assistance Do you need any assistance at home?: none Review of Systems - Review of Systems Hints: Right click = Denies (Slash). 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 Loss of appetite taste for food., Appetite - Special Diet - Diabetic Diet, cardiac diet and low salt restriction.. Denies: Dizziness/Lightheadedness, Heart Arrhythmia/Irregularities, Sleep - Normal - awake every couple of hours, sleep in recliner, legs been hurting. - Pain Is Patient Pain Free?: No Pain Location: none Pain Level: 0/10 Risk Factor Assessment - Chief Complaint Chief Complaint: Patient presents to CR today following recent NSTMEI and CABG x 3 vessel bypass done at [facility] under Dr. Evgeny Shields. Patient will be following up cardiology care under Dr. Her here at [facility]. - Vital Signs Temperature: 98.7 F Respiratory Rate: 18 Pulse Ox: 98 Blood Pressure: 146/94 Nailbeds:: normal color - Pulse Pulse Rate: 92 Pulse Rhythm: Regular - Hypertension How long have you been treated?: 10 Dr. Beckett started me on BP med On medication(s)?: yes Blood Pressure Sitting - Left Arm: 146/94 - Diabetes Diabetic History: Type II, Medication Dependent - Obesity Height: 5 ft 7 in Weight:: 227 lb Weight in Pounds: 227.0 lbs Weight Source: Standing Scale Body Mass Index (BMI): 35.5 Nutritional Referral for Obesity: Yes - Physical Inactivity Physical Inactivity: Recreational activity - walking at home as directed by Dr. Shields. - Risk Stratification Risk Guidelines: Lowest Risk: Risk Factor for Dyslipidemia, Risk Factor for Diabetes, Risk Factor for Sedentary Lifestyle, Risk Factor for Depression, Moderate Risk: Risk Factor for Hypertension, Highest Risk: Risk Factor for Smoking, Risk Factor for Obesity - For Smoking Smoking Risk Guidelines: Smoking Low Risk: None or quit greater than 6 months ago. Smoking Moderate Risk: Smoker or quit 6 months or less ago. Smoking High Risk: Smoker - For Dyslipidemia Dyslipidemia Risk Guidelines: Low Risk: Moderate Risk: High Risk: 15-25% fat 25.1-29% fat >/= 30% fat. <7% sat fat 7-9% sat fat >9% sat fat. <150 mg chol 150-299 mg chol >/= 300 mg chol. LDL <100 LDL 100-129 LDL >/= 130. Chol/HDL ratio <5.0 Chol/HDL ratio 5.0-6.0 Chol/HDL ratio >6.0. Triglycerides <100 Triglycerides 100-149 Triglycerides >/= 150 - For Diabetes Mellitus Diabetes Risk Guidelines: Diabetes Low Risk: HgA1c <6.5% and/or FBG <120. Diabetes Moderate Risk: HgA1c 6.6-7.9% and/or FBG 120-180. Diabetes High Risk: HgA1c >/= 8% and/or FBG >180 - For Obesity/Overweight Obesity/Overweight Risk Guidelines: Obesity Low Risk: BMI <25.0. Obesity Moderate Risk: BMI 25-29.9. Obesity High Risk: BMI >/= 30.0 - For Hypertension Hypertension Risk Guidelines: Hypertension Low Risk: Systolic <120 and Diastolic <80. Hypertension Moderate Risk: Systolic 120-139 and Diastolic 80-89. Hypertension High Risk: Systolic >/= 140 and Diastolic >/= 90 - For Sedentary Lifestyle Sedentary Lifestyle Risk Guidelines: Sedentary Lifestyle Low Risk: >/= 1,500 kcal/week. Sedentary Lifestyle Moderate Risk: 700-1,499 kcal/week. Sedentary Lifestyle High Risk: < 700 kcal/week - For Depression Depression Risk Guidelines: Depression Low Risk: Not clinically depressed. Depression Moderate Risk: Mildly depressed. Depression High Risk: Clinically depressed - Family History Family History: Family History (Last Updated 08/27/18 @ 09:37 by Fabrizio Jaime, BURGLAR ALARM SUPERINTENDENT, TELEPHONE DIAPHRAGM ASSEMBLER, BS) Other CAD (coronary artery disease) Cancer Diabetes Gall stones Hypertension Motivation - Motivation to Participate On a scale of 1 to 10, how prepared are you to commit to attending program?: 10 What do you see as barriers to successfully being able to complete the program?: none What do you see as the benefits of succesfully completing the program? In other words, what do you hope to get out of participating in the program?: cut grass, mow, be outside, carry on daily activities doing prior Are there issues you are dealing with that will interfere with completing the program?: none Do you have a spouse or signficant other, family or friends who will help support you to complete the program?: yes.
--- NOTE | 2018-08-27 09:11 | CR.HP_ITS ---
CR - History & Physical - General Arrival date:: 08/27/18 Arrival time:: 08:47 Date of Referral:: 08/19/18 Date of CR Evaluation:: 08/27/18 Referring Physician: Dr. Shreyas Shields/ Dr. Zaki Her Primary Diagnosis: CABG x 3 - History of Present Cardiac Event Onset Date: Enter Onset Date of cardiac illnesses in Comment field below Coronary Artery Bypass Graft:: Yes - 07/27/2018 Heart Failure EF <35%:: No - 35% per-operative - Medications Home Medications: Ambulatory Orders Medication Instructions Recorded Albuterol Aerosols [Ventolin 2.5 mg INHALATION Q4HWA.RT 07/19/18 Aerosols] Albuterol IH (ProAir) [Proair Hfa 1 puff INHALATION Q4H PRN PRN 07/19/18 (SP)Vent Pts] Aspirin [Aspir 81] 81 mg PO DAILY 07/19/18 Atorvastatin Calcium 40 mg PO DAILY 07/19/18 Furosemide [Lasix] 20 mg PO DAILY PRN 07/19/18 Lisinopril 20 mg PO DAILY 07/19/18 Loratadine 10 mg PO DAILY PRN 07/19/18 Metformin HCl 500 mg PO DAILY 07/19/18 Omeprazole [Prilosec] 20 mg PO DAILY 07/19/18 Ropinirole HCl 0.25 mg PO QHS 07/19/18 Acetaminophen [Tylenol] 650 mg PO Q4H PRN PRN 08/27/18 Albuterol Sulfate [Albuterol 18 gm IH 08/27/18 Sulfate Hfa] Albuterol Sulfate [Proventil Hfa] 08/27/18 Clopidogrel Bisulfate [Plavix] 75 mg PO DAILY 08/27/18 Guaifenesin [Mucinex] 600 mg PO BID 08/27/18 Melatonin/Pyridoxine HCl (B6) 1 each PO 08/27/18 [Melatonin 3 mg Tablet] Metoprolol Succinate [Kapspargo 50 mg PO 08/27/18 Sprinkle] Polyethylene Glycol 3350 [Miralax] 17 gm PO QHS 08/27/18 Potassium Chloride [K-Dur] 20 meq PO DAILY PRN 08/27/18 - Allergies Allergies/Adverse Reactions: Allergies azithromycin [From Zithromax] Allergy (Verified 07/19/18 04:23) Hives diltiazem Allergy (Verified 07/19/18 04:23) Swelling Penicillins [PCN] Allergy (Verified 07/19/18 04:23) Anaphylaxis tetracycline Allergy (Verified 07/19/18 04:23) Hives amlodipine Adverse Reaction (Verified 07/19/18 10:03) Other cramping in feet? Patient unsure nifedipine Adverse Reaction (Verified 07/19/18 04:23) Upset Stomach simvastatin Adverse Reaction (Verified 07/19/18 04:23) Other - Sleep Disorder Evaluation Hx of Sleep Apnea: Yes Do you snore loudly (louder than talking or can be heard through closed doors)?: Yes Do you often feel tired/ fatigued/ sleepy during daytime?: Yes Has anyone observed you stop breathing during sleep?: Yes - girlfriend will shake him wake him up and have him roll over. History of Hypertension (for STOP score): Yes STOP Results: Positive Advanced Directives - Advanced Directives Power of Credentialing Coordinator: No Living Will: No Advance Directives Information Provided: Yes Advance Directives on File: No DNR Order?:: No - MOLST See MOLST form: No Past Medical History - Past Medical Illness Medical History: Past Medical History (Last Updated 08/27/18 @ 09:38 by Fabrizio Jaime CRT, CUPOLA MELTER HELPER, BS) Atherosclerotic heart disease of [place] coronary artery without angina pectoris (Chronic) I25.10 Severe two-vessel disease involving the ostial LAD, severely diseased mid to distal LAD and a dominant left circumflex artery with severe mid segment disease. Reduced left ventricular ejection fraction RECOMMENDATIONS:Surgery consult for valvular disease per Dr. Her 07/20/18 Pulmonary hypertension (Chronic) I27.20 Moderate per echo 07/20/18: RVSP 53 mmhg Nonrheumatic tricuspid (valve) insufficiency (Chronic) I36.1 1-2+ per echo Coronary artery disease involving coronary bypass graft of [place] heart I25.810 laryngoscopy, direct, op, scop, exc tumr - Past Surgical History Surgical History: - - Laryngeal biopsy - Family History Summary Family History: Family History (Last Updated 08/27/18 @ 09:37 by Fabrizio Jaime CRT, CUPOLA MELTER HELPER, BS) Other CAD (coronary artery disease) Cancer Diabetes Gall stones Hypertension Social History - Smoking History Smoking Status: Former smoker Years Smokin Packs Smoked per Day: 2 Hx Smoking Cessation Date: 07/21/2018 Hx Tobacco Use: Yes Hx Smoking Exposure: Yes - Alcohol Use Alcohol Usage: No - Substance Abuse Hx Substance Use: No - Occupation Occupation (List type of work in comments):: Retired - Hobbies, Recreation, Social Activities Hobbies: Other - work on old cars, fishing and hunting. Recreational Activities: I am able to engage in most, but not all activities Social Environment - Status Marital Status: Single - Current Living Arrangements Living Environment:: Spouse - significant other - Children How many children do you have?: 0 Do any of your children live nearby?: No - Safety Do you feel safe in your surroundings?: Yes - Assistance Do you need any assistance at home?: none Review of Systems - Review of Systems Hints: Right click = Denies (Slash). 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 Loss of appetite taste for food., Appetite - Special Diet - Diabetic Diet, cardiac diet and low salt restriction.. Denies: Dizziness/Lightheadedness, Heart Arrhythmia/Irregularities, Sleep - Normal - awake every couple of hours, sleep in recliner, legs been hurting. - Pain Is Patient Pain Free?: No Pain Location: none Pain Level: 0/10 Risk Factor Assessment - Chief Complaint Chief Complaint: Patient presents to CR today following recent NSTMEI and CABG x 3 vessel bypass done at [facility] under Dr. Evgeny Shields. Patient will be following up cardiology care under Dr. Her here at [facility]. - Vital Signs Temperature: 98.7 F Respiratory Rate: 18 Pulse Ox: 98 Blood Pressure: 146/94 Nailbeds:: normal color - Pulse Pulse Rate: 92 Pulse Rhythm: Regular - Hypertension How long have you been treated?: 10 Dr. Beckett started me on BP med On medication(s)?: yes Blood Pressure Sitting - Left Arm: 146/94 - Diabetes Diabetic History: Type II, Medication Dependent - Obesity Height: 5 ft 7 in Weight:: 227 lb Weight in Pounds: 227.0 lbs Weight Source: Standing Scale Body Mass Index (BMI): 35.5 Nutritional Referral for Obesity: Yes - Physical Inactivity Physical Inactivity: Recreational activity - walking at home as directed by Dr. Shields. - Risk Stratification Risk Guidelines: Lowest Risk: Risk Factor for Dyslipidemia, Risk Factor for Diabetes, Risk Factor for Sedentary Lifestyle, Risk Factor for Depression, Moderate Risk: Risk Factor for Hypertension, Highest Risk: Risk Factor for Smoking, Risk Factor for Obesity - For Smoking Smoking Risk Guidelines: Smoking Low Risk: None or quit greater than 6 months ago. Smoking Moderate Risk: Smoker or quit 6 months or less ago. Smoking High Risk: Smoker - For Dyslipidemia Dyslipidemia Risk Guidelines: Low Risk: Moderate Risk: High Risk: 15-25% fat 25.1-29% fat >/= 30% fat. <7% sat fat 7-9% sat fat >9% sat fat. <150 mg chol 150-299 mg chol >/= 300 mg chol. LDL <100 LDL 100-129 LDL >/= 130. Chol/HDL ratio <5.0 Chol/HDL ratio 5.0-6.0 Chol/HDL ratio >6.0. Triglycerides <100 Triglycerides 100- 149 Triglycerides >/= 150 - For Diabetes Mellitus Diabetes Risk Guidelines: Diabetes Low Risk: HgA1c <6.5% and/or FBG <120. Diabetes Moderate Risk: HgA1c 6.6-7.9% and/or FBG 120-180. Diabetes High Risk: HgA1c >/= 8% and/or FBG >180 - For Obesity/Overweight Obesity/Overweight Risk Guidelines: Obesity Low Risk: BMI <25.0. Obesity Moderate Risk: BMI 25-29.9. Obesity High Risk: BMI >/= 30.0 - For Hypertension Hypertension Risk Guidelines: Hypertension Low Risk: Systolic <120 and Diastolic <80. Hypertension Moderate Risk: Systolic 120-139 and Diastolic 80-89. Hypertension High Risk: Systolic >/= 140 and Diastolic >/= 90 - For Sedentary Lifestyle Sedentary Lifestyle Risk Guidelines: Sedentary Lifestyle Low Risk: >/= 1,500 kcal/week. Sedentary Lifestyle Moderate Risk: 700-1,499 kcal/week. Sedentary Lifestyle High Risk: < 700 kcal/week - For Depression Depression Risk Guidelines: Depression Low Risk: Not clinically depressed. Depression Moderate Risk: Mildly depressed. Depression High Risk: Clinically depressed - Family History Family History: Family History (Last Updated 08/27/18 @ 09:37 by Fabrizio Jaime, EXTRACTOR PLANT OPERATOR, CUPOLA MELTER HELPER, BS) Other CAD (coronary artery disease) Cancer Diabetes Gall stones Hypertension Motivation - Motivation to Participate On a scale of 1 to 10, how prepared are you to commit to attending program?: 10 What do you see as barriers to successfully being able to complete the program?: none What do you see as the benefits of succesfully completing the program? In other words, what do you hope to get out of participating in the program?: cut grass, mow, be outside, carry on daily activities doing prior Are there issues you are dealing with that will interfere with completing the program?: none Do you have a spouse or signficant other, family or friends who will help support you to complete the program?: yes.
[2018-08-27 09:47] VITALS: BP 146/94; PULSE 92; RESP 18; TEMP 37.1; O2SAT 98; BMI 35.5
[2018-08-27 09:56] VITALS: BP 110/60
== END ==
PROVIDERS: Family Provider Family Medicine; PCP Family Medicine; Referring Provider Thoracic Surgery (Cardiothoracic Vascular Surgery); Visit Provider Thoracic Surgery (Cardiothoracic Vascular Surgery)
DX: Z95.1 Presence of aortocoronary bypass graft (principal)

== ENCOUNTER 2018-10-25 11:32 | Emergency (ER) | payer MEDICARE, SELFPAY ==
[2018-09-04 08:20] VITALS: BMI 34.3
[2018-10-25 11:33] VITALS: BP 187/95; PULSE 85; RESP 20; TEMP 36.6; O2SAT 96; BMI 33.4
--- NOTE | 2018-10-25 11:41 | EKG12_ITS ---
Test Reason : CP Blood Pressure : / mmHG Vent. Rate : 085 BPM Atrial Rate : 085 BPM P-R Int : 150 ms QRS Dur : 086 ms QT Int : 368 ms P-R-T Axes : 023 -13 143 degrees QTc Int : 437 ms Normal sinus rhythm Moderate voltage criteria for LVH, may be normal variant Possible Anterior infarct (cited on or before 19-JUL-2018) T wave abnormality, consider lateral ischemia Abnormal ECG Confirmed by KAILEE DUNCAN, KASSY ([id number]), editor managing newspaper TENNILLE MATHEWS ([id number]) on 10/26/2018 1:07:44 PM Referred By: YEHUDA Confirmed By:KASSY DUGAN MD
--- NOTE | 2018-10-25 11:43 | RAD_ITS ---
STUDY: X-RAY CHEST REASON FOR EXAM: Male, 67 years old. Chest pain, bypass surgery 3 months ago TECHNIQUE: AP COMPARISON: 07/19/2018 FINDINGS: EKG leads project over the chest. There is elevation the right hemidiaphragm. There is no demonstrated pleural abnormality. There is mild cardiac enlargement. Sternal wires and mediastinal surgical clips compatible with prior CABG. Normal mediastinum and jerzy. Normal visualized pulmonary arteries. Normal visualized aortic arch and descending thoracic aorta. No acute bony process. There is no demonstrated abnormality of the visualized soft tissue structures of the upper abdomen. RAD/Chest 1 View (Portable) IMPRESSION: No acute cardiopulmonary process. Intervening CABG. Electronically Signed: Mihir Khanna MD at 12:10 EDT , Service support ,
[2018-10-25] MEDS: Aspirin 81 MG TAB.CHEW 324 MG PO (11:47)
[2018-10-25 12:01] LABS: Absolute Lymphocyte Count 1.69 X10^3/ul (0.83-4.51); Absolute Neutrophil Count 3.5 X10^3/uL (2.0-7.7); Basophil# 0.01 X10^3/uL; Basophil% 0.2 % (0-1); Eosinophil# 0.31 X10^3/uL; Eosinophils% 5.1 % (0-5); Hematocrit 42.5 % (40-54); Hemoglobin 14.5 g/dl (13.0-16.5); Lymphocyte # 1.69 X10^3/ul (4.0); Lymphocyte % 27.9 % (19-41); Mean Corp Hgb Conc 34.1 g/gl (32-36); Mean Corpuscular Hgb 32.2 pg (27.0-32.0); Mean Corpuscular Volume 94.2 fL (80-94); Mean Platelet Vol. 10.3 fl (6.2-12.0); Monocyte# 0.56 X10^3/uL; Monocyte% 9.2 % (0-10); Neutrophil # 3.48 X10^3/uL (2.7-7.7); Neutrophil % 57.4 % (47-70); POSITIVE COUNT NO; POSITIVE DIFFERENTIAL NO; POSITIVE MORPHOLOGY NO; Platelet Count 167 K/mm3 (150-450); RBC Distribution Width CV 13.3 % (11.6-14.6); RBC Distribution Width SD 45.8 fl (35.1-43.9); Red Blood Count 4.51 M/mm3 (4.6-6.2); White Blood Count 6.1 K/mm3 (4.4-11.0)
--- NOTE | 2018-10-25 12:04 | ED.VIS.GEN ---
History of Present Illness Informant: Patient Onset: Days Narrative: Patient presents to the ED with intermittent chest pain for the last 3 days. He states that he notes this pain when he has rest. He denies any associated shortness of breath. He localizes pain to his left chest and his left shoulder. He states that he does have a history of rotator cuff tear which he attributes his left shoulder pain to. July 27, 2018, patient did have triple bypass surgery. 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 He denies any exertional chest pain. He states that this pain is keeping him up at night. <Eliana Penaloza - Last Filed: 10/25/18 12:21> <Richard Moore - Last Filed: 10/25/18 13:26> Chief Complaint: Chest Pain Past Medical History Surgical History: - - Laryngeal biopsy Smoking Status: Former smoker - Family History Maternal Family History: Family History (Last Reviewed 09/04/18 @ 10:14 by Zaki Her MD) Mother Heart disease Father Heart disease Other CAD (coronary artery disease) Cancer Diabetes Gall stones Hypertension Family History: Reports: Heart Disease Paternal Family History: Family History (Last Reviewed 09/04/18 @ 10:14 by Zaki Her MD) Mother Heart disease Father Heart disease Other CAD (coronary artery disease) Cancer Diabetes Gall stones Hypertension Family History: Reports: Heart Disease <Eliana Penaloza - Last Filed: 10/25/18 12:21> - Family History Maternal Family History: Family History (Last Reviewed 09/04/18 @ 10:14 by Zaki Her MD) Mother Heart disease Father Heart disease Other CAD (coronary artery disease) Cancer Diabetes Gall stones Hypertension Paternal Family History: Family History (Last Reviewed 09/04/18 @ 10:14 by Zaki Her MD) Mother Heart disease Father Heart disease Other CAD (coronary artery disease) Cancer Diabetes Gall stones Hypertension <Richard Moore - Last Filed: 10/25/18 13:26> - Allergies and Home Meds Allergies/Adverse Reactions: Allergies azithromycin [From Zithromax] Allergy (Verified 10/25/18 11:37) Hives diltiazem Allergy (Verified 10/25/18 11:37) Swelling Penicillins [PCN] Allergy (Verified 10/25/18 11:37) Anaphylaxis tetracycline Allergy (Verified 10/25/18 11:37) Hives acetaminophen [From Percocet] Adverse Reaction (Verified 10/25/18 11:37) SOB amlodipine Adverse Reaction (Verified 10/25/18 11:37) Other cramping in feet? Patient unsure lisinopril Adverse Reaction (Verified 10/25/18 11:37) cough nifedipine Adverse Reaction (Verified 10/25/18 11:37) Upset Stomach oxycodone [From Percocet] Adverse Reaction (Verified 10/25/18 11:37) SOB simvastatin Adverse Reaction (Verified 10/25/18 11:37) Other Primary Care Physician: Yanick Rashid MD [Primary Care Provider] - Review of Systems General: Denies: Chills, Fever, Sweats Eyes: Denies: Visual changes - bilaterally, Diplopia ENT: Denies: Rhinorrhea, Sore throat Cardiovascular: Reports: Chest pain. Denies: Palpitations Respiratory: Denies: Dyspnea, Cough, Dyspnea on exertion Gastrointestinal: Denies: Abdominal pain, Nausea, Vomiting, Diarrhea, Melena, Hematochezia Genitourinary: Denies: Dysuria, Hematuria, Frequency Musculoskeletal: Denies: Back pain, Extremity Pain Skin: Denies: Rash, Wounds Neurological: Denies: Headache, Weakness, Numbness <Eliana Penaloza - Last Filed: 10/25/18 12:21> Physical Exam Vital Signs/Narrative: Vital Signs Temp Pulse Resp BP Pulse Ox 10/25/18 11:33 97.9 F 85 20 H 187/95 H 96 General: Well nourished, Well developed, No Acute Distress Head: Normocephalic, Atraumatic Eyes: Perrl, EOMI ENT: Moist mucous membranes, No rhinorrhea Neck: Supple, Nontender Cardiovascular: Regular rate, Regular rhythm, No murmurs Respiratory: No distress, CTA bilaterally, Chest tenderness - Anterior chest wall tenderness to palpation. Pain is reproduced with movement as well., - Abdomen: Soft, Nontender, Nondistended, Normal bowel sounds Back: Nontender, Normal Inspection Extremities: Nontender, No edema Skin: Normal color, No rash, - - Surgical scar over the anterior chest wall midline is clean dry and intact. It has healed appropriately. No evidence of secondary cellulitis. Neurological: Alert, Oriented x3, Cranial nerves II-XII grossly intact, Normal Strength, Normal Sensation Psychological: Normal affect, Normal Mood <Keiry Penalozaily - Last Filed: 10/25/18 12:21> Vital Signs/Narrative: Vital Signs Temp Pulse Resp BP Pulse Ox 10/25/18 12:16 72 17 155/94 H 98 10/25/18 11:33 97.9 F 85 20 H 187/95 H 96 <Richard Moore - Last Filed: 10/25/18 13:26> Diagnostic/Tx/Re-eval - Medical Decision Making Presents to the ED with reports of intermittent nonexertional chest pain for the last 3 days. Physical exam is fairly unremarkable. EKG shows normal sinus rhythm with LVH. Ventricular rate 85 bpm. No acute ischemic changes. EKG is unchanged from prior EKG done in August 2018, which was post CABG. CBC, BMP, troponin, and chest x-ray are unremarkable. The reproducibility of patient's symptoms and recent CABG, I am less concerned with cardiac etiology. At this time, I think it is safe for the patient be discharged home. He was instructed to continue his meloxicam and Tylenol as prescribed by his panama hat hydraulic press operator. He is going to contact his PCP tomorrow as well to arrange follow-up. He was educated on signs/symptoms to return to the ED. Provided discharge instructions. He was agreeable to plan. Disposition: Home stable Impression: Chest pain, nonexertional and reproducible. Recent history of CABG. <Eliana Penaloza - Last Filed: 10/25/18 12:21> - Medical Decision Making The patient has reproducible chest pain. His EKG was unchanged from August of this year. Screening labs including cardiac enzymes were normal. Chest x-ray shows no evidence of volume overload or pneumonia. I do feel that this is likely just postoperative pain. Patient is not hypoxic. He is not tachycardic. He has no pleuritic pain. I do not feel that further work-up is necessary. He felt he is safe for discharge to follow-up with his outpatient panama hat hydraulic press operator. <Richard Moore - Last Filed: 10/25/18 13:26> ED Disposition <Eliana Penaloza - Last Filed: 10/25/18 12:21> <Richard Moore - Last Filed: 10/25/18 13:26> - Plan for ED Patient: Disposition: Home or Assisted Living Diagnosis: Chest pain at rest Instructions: CHEST PAIN, Uncertain Cause Referrals: Yanick Rashid MD [Primary Care Provider] -
[2018-10-25 12:06] LABS: Anion Gap 2 (5-15); BUN 14 mg/dL (7-18); BUN/Creat Ratio 11.3 RATIO (10-20); Calcium,Total 9.7 mg/dL (8.5-10.1); Chloride 100 mmol/L (98-107); Creatinine, Serum 1.24 mg/dL (0.70-1.30); EST Glomerular Filtration Rate 62 mL/min (>60); Est Glom Filt Rate - Afr Amer 75 mL/min (>60); Estimated Creatinine Clearance 54.79 ml/min; Glucose 172 mg/dL (74-106); Potassium 4.8 mmol/L (3.5-5.1); Sodium Level 132 mmol/L (136-145)
[2018-10-25 12:16] VITALS: BP 155/94; PULSE 72; RESP 17; O2SAT 98
[2018-10-25 12:28] VITALS: BP 148/70; PULSE 68; RESP 14; O2SAT 98
== END 2018-10-25 12:32 | disposition home or self-care (01) ==
LOC: ED 12:27
PROVIDERS: Emergency Provider Physician Assistant; Family Provider Family Medicine; PCP Family Medicine
DX: R07.9 Chest pain, unspecified (principal); Z95.1 Presence of aortocoronary bypass graft; Z87.891 Personal history of nicotine dependence; M25.512 Pain in left shoulder
CPT/HCPCS: 71045; 80048; 84484; 85025; 93005; 99285; A4216

== ENCOUNTER → 2018-12-01 07:36 | Outpatient (CLI) | payer MEDICARE, SELFPAY ==
[2018-09-04 08:20] VITALS: BMI 34.3
--- NOTE | 2018-12-01 10:32 | NEURO ---
NCS and/or EMG Patient Report Ordering Doctor: Yanick Rashid DATE OF SERVICE: 12/01/18 This is a bilateral lower extremity nerve conduction study and left lower extremity EMG performed on this 67-year-old male who has had a 2 to 3-year history of numbness in his feet described as tingling below the knees. His diabetes was diagnosed about 1 year ago since then his hemoglobin A1c has been very good however he does not know the numbers prior to 1 year ago. Bilateral lower extremity sensory motor nerve conduction studies performed. The sural sensory responses are normal. The motor conduction velocities are diffusely slowed, amplitudes are reduced and distal latencies are prolonged. Tibial and common peroneal F-wave latencies are prolonged and tibial H reflex responses are reduced. Left lower extremity needle electromyography is performed. Muscles evaluate included the extensor digitorum brevis, abductor hallucis, medial gastrocnemius, anterior tibialis, and vastus lateralis muscles. Distal muscles demonstrated large motor units with early recruitment however of pathologic spontaneous activity was lacking. More proximal muscles demonstrated normalization of motor unit amplitudes. Patient also did not experience sensation with needle electromyography and distal muscles. Impression: Abnormal electrophysiologic study of the lower extremities consistent with length dependent polyneuropathy, moderate to severe, likely due to the patient's history of diabetes.
== END ==
LOC: PSN 07:37
PROVIDERS: Family Provider Family Medicine; PCP Family Medicine; Referring Provider Family Medicine; Visit Provider Family Medicine
DX: R20.2 Paresthesia of skin (principal)
CPT/HCPCS: 95886; 95910

== ENCOUNTER → 2018-12-07 08:37 | Outpatient (CLI) | payer MEDICARE, SELFPAY ==
[2018-09-04 08:20] VITALS: BMI 34.3
--- NOTE | 2018-12-07 08:39 | ECHOCS_ITS ---
Reason For Study: CAD Procedure This was a 2D Doppler, Color Flow transthoracic echocardiogram. The study was technically difficult. Exam performed in department. Left Ventricle Normal LV size. The estimated ejection fraction is 45 %. Mild to moderate segmental systolic dysfunction (see wall motion). Williamson : Akinetic. Mid-Inferior: Hypokinetic. The rest of the wall segments are normal. Right Ventricle Normal RV size. Normal systolic function. Atria The left atrium is moderately enlarged. Normal right atrium. Mitral Valve Normal mitral valve. Tricuspid Valve Normal tricuspid valve. Mild (1+) tricuspid valve insufficiency. Pulmonary artery systolic pressure is 36 mmHg. Aortic Valve Trisinus/trileaflet aortic valve. Pulmonic Valve Normal pulmonic valve. Great Vessels Normal aortic root. The pulmonary artery is normal size. Normal inferior vena cava. Pericardium/Pleural No pericardial effusion. Medication 22 gauge I.V. with prn adaptor inserted into right arm. Diluted definity 3ml given slow IV push to enhance endocardial definition. MMode/2D Measurements & Calculations LVIDd: 5.2 cm IVSd: 1.1 cm Ao root diam: 3.4 cm LVIDs: 3.8 cm LVPWd: 0.97 cm RVDd: 3.1 cm FS: 28.2 % LAV(MOD-bp): 57.4 ml LA A4 area: 24.0 cm2 LA dimension(2D): 4.5 cm LAV(MOD-bp) Indexed: 27.4 ml/m2 LAV(MOD-sp2): 38.0 ml LAV(MOD-sp4): 73.5 ml RA A4 area: 11.9 cm2 Doppler Measurements & Calculations MV E max dewey: 93.8 cm/sec Lat Peak E' Dewey: 8.4 cm/sec Med Peak E' Dewey: 5.8 cm/sec MV A max dewey: 122.2 cm/sec E/E' lat: 11.2 E/E' med: 16.1 MV E/A: 0.77 Ao V2 max: 160.4 cm/sec LV V1 max: 125.5 cm/sec PA V2 max: 90.4 cm/sec Ao max P.3 mmHg LV V1 max P.3 mmHg TR max dewey: 283.6 cm/sec TR max P.4 mmHg Interpretation Summary Normal LV size. The estimated ejection fraction is 45 %. Mild to moderate segmental systolic dysfunction (see wall motion). Contrast injection was performed. Ordering Physician: Zaki Her Referring Physician: Yanick Rashid Performed By: Fatimah Pantoja RDCS
== END ==
LOC: CVS 08:38
PROVIDERS: Family Provider Family Medicine; PCP Family Medicine; Referring Provider Internal Medicine Cardiovascular Disease; Visit Provider Internal Medicine Cardiovascular Disease
DX: I25.5 Ischemic cardiomyopathy (principal)
CPT/HCPCS: 93306; Q9957; A4216; C8929

== ENCOUNTER → 2019-06-24 11:22 | Outpatient (CLI) | payer MEDICARE, SELFPAY ==
[2019-06-24 10:08] VITALS: BMI 37.3
[2019-06-24 12:21] LABS: Absolute Lymphocyte Count 1.44 X10^3/uL (0.83-4.51); Absolute Neutrophil Count 4.3 X10^3/uL (2.0-7.7); Basophil# 0.04 X10^3/uL; Basophil% 0.6 % (0-1); Hematocrit 39.6 % (40-54); Hemoglobin 13.6 g/dL (13.0-16.5); Lymphocyte # 1.44 X10^3/ul (4.0); Lymphocyte % 21.5 % (19-41); Mean Corp Hgb Conc 34.3 g/dL (32-36); Mean Corpuscular Hgb 32.6 pg (27.0-32.0); Mean Platelet Vol. 10.6 fl (6.2-12.0); Monocyte# 0.69 X10^3/uL; Monocyte% 10.3 % (0-10); NRBC Flagged by Analyzer 0 % (0-5); Neutrophil # 4.26 X10^3/uL (2.7-7.7); Neutrophil % 63.6 % (47-70); Platelet Count 162 K/mm3 (150-450); RBC Distribution Width CV 12.6 % (11.6-14.6); RBC Distribution Width SD 43.6 fl (35.1-43.9); Red Blood Count 4.17 M/mm3 (4.6-6.2); White Blood Count 6.7 K/mm3 (4.4-11.0)
[2019-06-24 13:03] LABS: AST(SGOT) 22 U/L (15-37); Alanine Aminotransfer ALT/SGPT 38 U/L (16-61); Albumin, Serum 3.6 g/dL (3.2-5.0); Alkaline Phosphatase 71 U/L (45-117); Anion Gap 9 (5-15); BUN 14 mg/dL (7-18); Calcium,Total 9.3 mg/dL (8.5-10.1); Chloride 101 mmol/L (98-107); Cholesterol 124 mg/dL (200); EST Glomerular Filtration Rate 54 mL/min (>60); Est Glom Filt Rate - Afr Amer 65 mL/min (>60); Globulin 3.7 g/dL (2.2-4.2); Glucose 169 mg/dL (74-106); High Density Lipoprotein 40 mg/dL; Potassium 4.2 mmol/L (3.5-5.1); Protein, Total 7.3 g/dL (6.4-8.2); Sodium Level 134 mmol/L (136-145); Thyroid Stim Hormone (TSH) 1.83 uIU/mL (0.358-3.74); Triglycerides 206 mg/dL; Very Low Density Lipoprotein 41 mg/dL (5-40)
== END ==
LOC: LAB 11:24
PROVIDERS: PCP Family Medicine; Referring Provider Physician Assistant Medical; Visit Provider Physician Assistant Medical
DX: R40.0 Somnolence (principal); R53.83 Other fatigue; I10 Essential (primary) hypertension; E78.5 Hyperlipidemia, unspecified; I25.5 Ischemic cardiomyopathy; I25.10 Atherosclerotic heart disease of native coronary artery without angina pectoris
CPT/HCPCS: 36415; 80053; 80061; 84443; 85025

== ENCOUNTER → 2019-07-07 13:58 | Outpatient (CLI) | payer MEDICARE, SELFPAY ==
[2019-06-24 10:08] VITALS: BMI 37.3
== END ==
LOC: SL 13:58
PROVIDERS: PCP Family Medicine; Referring Provider Physician Assistant Medical; Visit Provider Physician Assistant Medical
DX: G47.33 Obstructive sleep apnea (adult) (pediatric) (principal); R40.0 Somnolence; R53.83 Other fatigue; I10 Essential (primary) hypertension
CPT/HCPCS: 95806

== ENCOUNTER → 2019-08-17 09:15 | Outpatient (CLI) | payer MEDICARE, SELFPAY ==
[2019-08-03 10:17] VITALS: BMI 37.3
== END ==
PROVIDERS: PCP Family Medicine; Visit Provider Nurse Practitioner Acute Care
DX: Z46.89 Encounter for fitting and adjustment of other specified devices (principal)

== ENCOUNTER → 2019-08-18 09:08 | Outpatient (CLI) | payer MEDICARE, SELFPAY ==
[2019-08-03 10:17] VITALS: BMI 37.3
== END ==
PROVIDERS: PCP Family Medicine; Visit Provider Nurse Practitioner Acute Care
DX: G47.33 Obstructive sleep apnea (adult) (pediatric) (principal)

== ENCOUNTER → 2019-09-30 13:00 | Outpatient (CLI) | payer MEDICARE, SELFPAY ==
[2019-09-10 09:00] VITALS: BMI 36.1
== END ==
PROVIDERS: PCP Family Medicine; Referring Provider Nurse Practitioner Acute Care; Visit Provider Nurse Practitioner Acute Care
DX: Z46.89 Encounter for fitting and adjustment of other specified devices (principal)
CPT/HCPCS: 98960; G0463

== ENCOUNTER → 2020-01-17 12:49 | Outpatient (CLI) | payer MEDICARE, SELFPAY ==
[2019-11-23 05:51] VITALS: BMI 37.5
[2020-01-04 15:17] VITALS: BMI 37.3
--- NOTE | 2020-01-18 10:20 | PFT ---
INTRODUCTION: The patient is a 69-year-old male that presents for pulmonary function studies secondary to a diagnosis of obstructive sleep apnea. Respiratory therapy reports good patient effort. Bronchodilators were used during testing. INTERPRETATION: Forced expiration spirometry demonstrates no evidence of a large airways obstructive ventilatory defect. There was no significant response to aerosolized bronchodilators, based upon strict ATS criteria. Spirograms are of good quality and plateau normally. Body plethysmography was performed and reveals lung volumes to be within normal limits. Diffusing capacity by single breath CO is reduced at 56% of predicted. IMPRESSION: Isolated reduction in diffusing capacity, which could be related to an underlying pulmonary vascular disorder, such as pulmonary hypertension. There are no previous pulmonary function studies available for comparison.
== END ==
PROVIDERS: PCP Family Medicine; Referring Provider Internal Medicine Critical Care Medicine; Visit Provider Internal Medicine Critical Care Medicine
DX: I27.21 Secondary pulmonary arterial hypertension (principal); G47.33 Obstructive sleep apnea (adult) (pediatric); F17.210 Nicotine dependence, cigarettes, uncomplicated
CPT/HCPCS: 94060; 94726; 94729

== ENCOUNTER → 2020-02-16 14:15 | Outpatient (CLI) | payer MEDICARE, SELFPAY ==
[2020-02-07 13:10] VITALS: BMI 36.3
--- NOTE | 2020-02-16 14:17 | CT_ITS ---
STUDY: LOW DOSE CT LUNG CANCER SCREENING REASON FOR EXAM: Male, 69 years old. SMOKER 1 PPD X 50 + YRS. H/O LARYNX CA-RADIATION RADIATION DOSAGE (If Supplied By Facility): CTDIvol = ( 3.40 ) mGy, DLP = ( 132.70 ) mGycm TECHNIQUE: No contrast was administered. Low dose technique was utilized (average mAS-38 and kVp 120). 1.25 mm axial source images with a slice interval of 1.25-mm were reconstructed in lung windows. 2.5 mm axial source images with a slice interval of 2.5-mm were reconstructed in lung windows. 5.0 mm axial source images with a slice interval of 5.0-mm were reconstructed in soft tissue windows. Nodule measured using lung windows on PACS and/or independent workstation with automated measurement of minimum and maximum diameter. Nodule measurement reported as average diameter rounded to the nearest whole number. Growth is defined as an increase ins size of greater than 1.5 mm. COMPARISON: Comparison is made with prior chest radiograph dated 10/25/2018. NODULES: No suspicious nodules are seen. Emphysema: Hyperinflation. There is evidence of emphysematous changes more prominent in the upper lobes. Increased interstitial markings in both lungs worse at the lung bases with subpleural blebs suggestive of chronic interstitial fibrosis. Endobronchial lesion: None Aorta: Atherosclerotic plaque calcification of the aortic arch and descending thoracic aorta. Coronary arteries: Coronary artery calcification. Heart: Prior CABG. Mediastinal nodes: Small mediastinal lymph nodes. Other chest and abdominal findings: Degenerative changes of the thoracic spine. CT/Low Dose CT Lung Screening IMPRESSION: Lung-RADS category 2 - Continue annual screening with LDCT in 12 months. IMPORTANT NOTES FOR USE: ACR Lung-RADS Version 1.0 Assessment Categories Release Date: August 23, 2013 Category: Coded 0-4 bases on nodule(s) with highest degree of suspicion. Negative screen is defined as categories 1 and 2; a positive screen is defined as categories 3 and 4. Category 3 and 4A nodules that are unchanged on interval CT should be coded as category 2, and individuals returned to screening in 12 months. Category 4X: Category 3 or 4 nodules with additional imaging findings that increase the suspicion of lung cancer, such as spiculation, GGN that doubles in size in 1 year, enlarged lymph notes, etc. Category Modifiers: S (significant finding unrelated to lung cancer) and C (prior history of treated lung cancer) may be added to the 0-4 Lung-RADS Electronically Signed: Ambrose Dennis, at 15:26 EDT , Service support ,
== END ==
PROVIDERS: PCP Family Medicine; Referring Provider Nurse Practitioner Acute Care; Visit Provider Nurse Practitioner Acute Care
DX: Z12.2 Encounter for screening for malignant neoplasm of respiratory organs (principal); F17.210 Nicotine dependence, cigarettes, uncomplicated
CPT/HCPCS: G0297

== ENCOUNTER 2020-06-21 08:25 | Outpatient (RCR) | payer MEDICARE, SELFPAY ==
[2020-02-07 13:10] VITALS: BMI 36.3
== END 2020-06-21 23:59 ==
LOC: IMMUN 08:25
PROVIDERS: PCP Family Medicine; Visit Provider Family Medicine
DX: Z23 Encounter for immunization (principal)
CPT/HCPCS: 0011A; 0012A; 91301

== ENCOUNTER → 2021-01-04 16:41 | Outpatient (CLI) | payer MEDICARE, SELFPAY ==
[2021-01-04 17:49] LABS: Microalbumin,Random Urine 95.7 mg/L (NO RANGE EST.); Microalbumin:Creatinine Ratio 57.7 mg/g CRE (<30 mg/g CRE)
== END ==
PROVIDERS: PCP Family Medicine; Referring Provider Internal Medicine Nephrology; Visit Provider Internal Medicine Nephrology
DX: N18.32 Chronic kidney disease, stage 3b (principal)
CPT/HCPCS: 82043; 82570

== ENCOUNTER → 2021-08-14 | Outpatient (CLI) | payer MEDICARE, SELFPAY ==
[2021-08-14 12:30] LABS: Albumin, Serum 3.6 g/dL (3.2-5.0); BUN 24 mg/dL (7-18); BUN/Creat Ratio 13.5 RATIO (10-20); Chloride 100 mmol/L (98-107); Creatinine, Serum 1.78 mg/dL (0.70-1.30); EST Glomerular Filtration Rate 40 mL/min (>60); Est Glom Filt Rate - Afr Amer 49 mL/min (>60); Glucose 344 mg/dL (74-106); Phosphorus 3.2 mg/dL (2.5-4.9); Potassium 4.5 mmol/L (3.5-5.1); Sodium Level 133 mmol/L (136-145)
[2021-08-14 12:45] LABS: PTHIN 50.8 pg/mL (18.4-80.1)
== END | disposition home or self-care (01) ==
LOC: POLAB3 11:46
PROVIDERS: PCP Family Medicine; Visit Provider Internal Medicine Nephrology
DX: N18.32 Chronic kidney disease, stage 3b (principal)
CPT/HCPCS: 36415; 80069; 83970

== ENCOUNTER → 2022-02-05 | Outpatient (CLI) | payer MEDICARE, SELFPAY ==
[2022-02-05 14:21] LABS: Albumin, Serum 3.6 g/dL (3.2-5.0); BUN 20 mg/dL (7-18); BUN/Creat Ratio 9.8 RATIO (10-20); Calcium,Total 9.5 mg/dL (8.5-10.1); Chloride 99 mmol/L (98-107); Creatinine, Serum 2.04 mg/dL (0.70-1.30); EST Glomerular Filtration Rate 35 mL/min (>60); Est Glom Filt Rate - Afr Amer 42 mL/min (>60); Glucose 164 mg/dL (74-106); Phosphorus 3.4 mg/dL (2.5-4.9); Potassium 4.6 mmol/L (3.5-5.1); Sodium Level 131 mmol/L (136-145)
== END | disposition home or self-care (01) ==
LOC: LAB 13:14
PROVIDERS: PCP Family Medicine; Referring Provider Internal Medicine Nephrology; Visit Provider Internal Medicine Nephrology
DX: N18.32 Chronic kidney disease, stage 3b (principal)
CPT/HCPCS: 36415; 80069

== ENCOUNTER → 2022-06-18 | Outpatient (CLI) | payer MEDICARE, SELFPAY ==
[2022-06-18 11:35] LABS: Microalbumin,Random Urine 17.9 mg/L (NO RANGE EST.); Microalbumin:Creatinine Ratio 13.5 mg/g CRE (<30 mg/g CRE)
[2022-06-18 11:37] LABS: Albumin, Serum 3.5 g/dL (3.2-5.0); BUN 18 mg/dL (7-18); BUN/Creat Ratio 8.9 RATIO (10-20); Calcium,Total 9.5 mg/dL (8.5-10.1); Chloride 103 mmol/L (98-107); Creatinine, Serum 2.03 mg/dL (0.70-1.30); EST Glomerular Filtration Rate 35 mL/min (>60); Est Glom Filt Rate - Afr Amer 42 mL/min (>60); Glucose 179 mg/dL (74-106); Potassium 4.4 mmol/L (3.5-5.1); Sodium Level 137 mmol/L (136-145)
[2022-06-18 11:40] LABS: PTHIN 62.2 pg/mL (18.4-80.1)
== END | disposition home or self-care (01) ==
PROVIDERS: PCP Family Medicine; Referring Provider Internal Medicine Nephrology; Visit Provider Internal Medicine Nephrology
DX: N18.32 Chronic kidney disease, stage 3b (principal); E11.22 Type 2 diabetes mellitus with diabetic chronic kidney disease
CPT/HCPCS: 36415; 80069; 82043; 82570; 83970

== ENCOUNTER 2022-10-20 18:06 | Emergency (ER) | payer MEDICARE, SELFPAY ==
[2022-10-20 18:09] VITALS: BP 151/108; PULSE 82; RESP 18; TEMP 35.9; O2SAT 97; BMI 34.0
--- NOTE | 2022-10-20 18:19 | EDS_ITS ---
HPI History of Present Illness Chief Complaint: Shortness of Breath Informant: patient Onset/Context/Timing Onset: Weeks (2 weeks) Context: Gradual Onset Timing: Waxes and wanes Narrative Narrative: Patient presents with shortness of breath and left posterior rib pain. He has a history of COPD and had been placed on cough medicine and prednisone. He states is not feeling it is improving and the pain he is feeling is similar to when he had pneumonia in the past. He has not had fever or chills. He is bringing up white sputum. He has noted increased wheezing and finds himself using his nebulizer more frequently. [facility] Medical History Acute blood loss anemia Acute kidney injury (07/2018) Atherosclerosis of coronary artery without angina pectoris Chronic combined systolic and diastolic CHF (congestive heart failure) Chronic kidney disease (CKD) COPD (chronic obstructive pulmonary disease) Elevated hemidiaphragm Essential (primary) hypertension GERD (gastroesophageal reflux disease) Hyperlipidemia Ischemic cardiomyopathy Laryngeal cancer (11/2015) laryngoscopy, direct, op, scop, exc tumr Nicotine dependence Non-rheumatic tricuspid valve insufficiency Non-ST elevation (NSTEMI) myocardial infarction (07/19/18) Nonsustained ventricular tachycardia (07/2018) Obesity BURT (obstructive sleep apnea) Pleural effusion Secondary pulmonary arterial hypertension Smoking greater than 40 pack years Type 2 diabetes mellitus Home Medications aspirin 81 mg chewable tablet 81 mg PO DAILY@0800 10/25/18 [History Last Taken Unknown] atorvastatin 40 mg tablet 40 mg PO QHS 10/25/18 [History Last Taken Unknown] albuterol sulfate 2.5 mg/3 mL (0.083 %) solution for nebulization 2.5 mg inhalation Q4H PRN 06/24/19 [History Last Taken Unknown] albuterol sulfate 90 mcg/actuation aerosol inhaler 2 puff inhalation Q6H PRN 06/24/19 [History Last Taken Unknown] cholecalciferol (vitamin D3) 25 mcg (1,000 unit) capsule 1,000 unit PO DAILY 09/06/20 [History Last Taken Unknown] doxazosin 2 mg tablet 2 mg PO DAILY 09/06/20 [History Last Taken Unknown] empagliflozin 10 mg tablet (Jardiance) 10 mg PO DAILY 04/02/22 [History Last Taken Unknown] gabapentin 400 mg capsule 600 mg PO TID 04/02/22 [History Last Taken Unknown] loratadine 10 mg tablet 10 mg PO DAILY PRN 04/02/22 [History Last Taken Unknown] losartan 100 mg tablet 50 mg PO DAILY #30 tabs 04/02/22 [History Last Taken Unkn own] metoprolol succinate 100 mg tablet,extended release 24 hr 100 mg PO DAILY #45 tabs 06/26/22 [History Last Taken Unknown] hydrocodone-acetaminophen 5-325mg 5mg-325mg 1 tab PO Q6H PRN PRN Pain 3 days #10 TABLETS 10/20/22 [Rx Last Taken Unknown] levofloxacin 750 mg tablet 750 mg PO DAILY #4 tabs 10/20/22 [Rx Last Taken Unknown] Allergy/AdvReac Type Severity Reaction Status Date / Time amoxicillin Allergy Anaphylaxis Verified 10/20/22 18:09 azithromycin [From Zithromax] Allergy Hives Verified 10/20/22 18:07 diltiazem Allergy Swelling Verified 10/20/22 18:07 Penicillins [PCN] Allergy Anaphylaxis Verified 10/20/22 18:07 Sulfa (Sulfonamide Allergy Hives Verified 10/20/22 18:09 Antibiotics) tetracycline Allergy Hives Verified 10/20/22 18:07 acetaminophen [From Percocet] AdvReac SOB Verified 10/20/22 18:07 amlodipine AdvReac Other Verified 10/20/22 18:07 cyclobenzaprine AdvReac Other Verified 10/20/22 18:09 [From Flexeril] lisinopril AdvReac cough Verified 10/20/22 18:07 nifedipine AdvReac Upset Verified 10/20/22 18:07 Stomach oxycodone [From Percocet] AdvReac SOB Verified 10/20/22 18:07 simvastatin AdvReac Other Verified 10/20/22 18:07 Family History Mother Heart disease Father Heart disease Other CAD (coronary artery disease) Cancer Diabetes Gall stones Hypertension Surgical History H/O coronary artery bypass surgery (07/27/18) History of left heart catheterization (07/20/18) Social History Smoking Status: Current every day smoker tobacco type: cigarettes Tobacco: How many years used: 51 quit status: has quit before alcohol intake: never substance use type: does not use caffeine: Yes Type: coffee Number of servings: 10 ROS ROS ED Constitutional Constitutional ED: Denies chills or fever(s) Eyes Eyes: Denies change in vision or discharge from eye(s) ENT ENT ED: Denies discharge from eye(s), rhinorrhea or sore throat Cardiovascular Cardiovascular: Reports chest pain; Denies palpitations Respiratory/Chest Respiratory/Chest: Reports cough and dyspnea Gastrointestinal Gastrointestinal: Denies abdominal pain, nausea or vomiting Genitourinary Genitourinary ED: Denies dysuria Musculoskeletal Musculoskeletal: Reports back pain; Denies extremity pain Integumentary Denies Abrasions or rash Neurologic Neurologic: Denies headache(s) or weakness Psychiatric Psychiatric: Denies anxiety or depression Allergic/Immunologic Allergic/Immunologic ED: Denies lip swelling or urticaria EXAM Physical Exam Const Vital Signs: 10/20/22 18:09 10/20/22 18:14 10/20/22 19:40 Temperature 96.6 F L Temperature Source Temporal Pulse Rate 82 75 Respiratory Rate 18 16 Respiratory Effort Normal Non-Labored Blood Pressure 151/108 H 156/84 H Blood Pressure Mean 122 108 Pulse Ox 97 96 Oxygen Delivery Method Room Air Positive well nourished and well developed General Appearance ED: well developed HEENT Reports moist mucous membranes Eyes PERRL and EOMs intact bilaterally Chest Wall inspection of chest normal and palpation of chest normal Resp normal respiratory effort Resp Narrative: Coarse breath sounds on the left. Cardio regular rate and regular rhythm GI normal to inspection, nondistended, normoactive bowel sounds Extremity normal to inspection Neuro oriented x3 and no sensory deficits noted Motor Exam: strength 5/5 throughout Skin no rashes or lesions noted MDM MDM MDM Narrative Medical decision making narrative: 2 view chest x-ray is ordered initially to evaluate for pneumonia. I discussed with the patient that if this shows an obvious pneumonia we will treat him, however if it does not reveal an obvious pneumonia he will need further work-up to evaluate for other conditions such as pulmonary embolism. Two-view chest x- ray per my interpretation feels chronic changes with cardiomegaly. I do not see a definite focal infiltrate in the left lower lobe, however cardiomegaly makes is difficult to evaluate. Radiology interpretation is reviewed and they are unable to definitively say whether the patient has an infiltrate. In light of this patient is placed on cafeteria monitor and EKG obtained. Labwork obtained to evaluate for leukocytosis, anemia, and electrolyte derangement. Lab Data Labs: Laboratory Results - last 24 hr 10/20/22 10/20/22 10/20/22 19:20 19:20 19:20 WBC 8.2 RBC 4.55 L Hgb 14.5 Hct 43.6 MCV 95.8 H MCH 31.9 MCHC 33.3 RDW Std Deviation 46.4 H RDW Coeff of Tala 13.1 Plt Count 162 MPV 10.2 Immature Gran % (Auto) 0.700 Neut % (Auto) 88.6 H Lymph % (Auto) 5.7 L [place] % (Auto) 4.9 Eos % (Auto) 0.0 Baso % (Auto) 0.1 Absolute Neuts (auto) 7.3 Absolute Lymphs (auto) 0.47 L Nucleated RBC % 0 Differential Comment SCANNED D-Dimer Quant (PE/DVT) 0.84 H* Sodium 128 L Potassium 4.7 Chloride 95 L Carbon Dioxide 25.0 Anion Gap 8 BUN 35 H Creatinine 1.78 H Estim Creat Clear Calc 34.85 Est GFR (MDRD) Af Amer 49 L Est GFR (MDRD) Non-Af 40 L BUN/Creatinine Ratio 19.7 Glucose 280 H Calcium 9.9 Troponin I High Sens 10 B-Natriuretic Peptide 10/20/22 19:20 WBC RBC Hgb Hct MCV MCH MCHC RDW Std Deviation RDW Coeff of Tala Plt Count MPV Immature Gran % (Auto) Neut % (Auto) Lymph % (Auto) [place] % (Auto) Eos % (Auto) Baso % (Auto) Absolute Neuts (auto) Absolute Lymphs (auto) Nucleated RBC % Differential Comment D-Dimer Quant (PE/DVT) Sodium Potassium Chloride Carbon Dioxide Anion Gap BUN Creatinine Estim Creat Clear Calc Est GFR (MDRD) Af Amer Est GFR (MDRD) Non-Af BUN/Creatinine Ratio Glucose Calcium Troponin I High Sens B-Natriuretic Peptide 130.1 H Radiography Chest X-Ray - ED: 2 View, Read by ED Physician, Chronic Changes and Cardiomegaly Diagnostic Testing: Clinical Impression(s) from Imaging Studies Chest X-Ray 10/20/22 18:26 IMPRESSION: 1. Partially obscured left hemidiaphragm may be due to atelectasis or consolidation in the left lung base. Pneumonia not excluded. 2. Coarse interstitial markings similar to the prior exam. 3. Mild cardiomegaly. Electronically Signed: Richard Hurd MD at 18:44 EDT , Chest CTA 10/20/22 19:51 IMPRESSION: 1. No pulmonary embolism or dissection. 2. Mild fibrotic changes in the lung bases bilaterally. 3. Coronary artery disease. Electronically Signed: Richard Hurd MD at 20:57 EDT , EKG Initial EKG: Attestation: I personally reviewed and interpreted this EKG as follows: Interpretation: Sinus Rhythm (Sinus 84 with no acute ischemia. PACs noted. Nonspecific lateral T wave flattening.) Differential Diagnosis Chest pain/SOB: pulmonary embolism Reason(s) PE less likely: Positive for not tachycardic, not hypoxic and Other (No PE noted on imaging studies.), ACS ACS: Positive for no evidence of ACS based on cardiac biomarkers and EKG without ischemia and pneumonia Reason(s) pneumonia less likely: Positive for no infiltrate on CXR, no elevation in WBC count and no noted fever Treatment and Re-Evaluation :: CBC reveals normal white count at 8.2 with 88% neutrophils. Chemistry studies reveal a sodium of 128. It appears that his baseline is around 130. BUN is 35 and creatinine is 1.78. Glucose is 280. Troponin is normal at 10. BNP is 130. Two-view chest x-ray per my interpretation did not reveal an obvious infiltrate but cardiomegaly is noted. D-dimer is slightly elevated and therefore he does undergo a CTA of the chest. This reveals no evidence of PE or dissection. Mild fibrotic changes are noted in the lung bases. Coronary artery disease is noted. Test results are discussed with the patient. He has been on steroids and cough medicine without improvement. I will cover him with antibiotic given his history of COPD and bronchitis. I will write him a short course of analgesics to help with pain. My suspicion is that he has a COPD exacerbation causing significant cough and he has pulled a muscle and has nerve irritation. Discharge Plan Triage Chief Complaint: Shortness of Breath ED Provider: Kiersten Thompson Dx/Rx/DC Orders Clinical Impression: COPD exacerbation, Bronchitis Instructions: ED COPD Flare Prescriptions: New levofloxacin 750 mg tablet 750 mg PO DAILY Qty: 4 0RF hydrocodone-acetaminophen 5-325 mg tablet 1 tab PO Q6H PRN PRN (Reason: Pain) 3 Days Qty: 10 0RF No Action losartan 100 mg tablet 50 mg PO DAILY Qty: 30 albuterol sulfate 90 mcg/actuation HFA aerosol inhaler 2 puff INHALATION Q6H PRN albuterol sulfate 2.5 mg /3 mL (0.083 %) solution for nebulization 2.5 mg INHALATION Q4H PRN doxazosin 2 mg tablet 2 mg PO DAILY Label Comments: take 1 tablet by mouth once daily cholecalciferol (vitamin D3) 25 mcg (1,000 unit) capsule 1,000 unit PO DAILY Label Comments: take 1 capsule by mouth once daily gabapentin 400 mg capsule 600 mg PO TID Label Comments: take 1 capsule by mouth three times a day Jardiance 10 mg tablet 10 mg PO DAILY loratadine 10 mg tablet 10 mg PO DAILY PRN atorvastatin 40 MG tablet 40 mg PO QHS aspirin 81 MG tablet,chewable 81 mg PO DAILY@0800 metoprolol succinate 100 mg tablet extended release 24 hr 100 mg PO DAILY Qty: 45 Primary Care Provider: Yanick Rashid Referrals: Yanick Rashid MD [Primary Care Provider] - 1 Week Disposition Disposition: Home, Self Care
--- NOTE | 2022-10-20 18:26 | RAD_ITS ---
EXAM: XR CHEST, 2 VIEWS CLINICAL INDICATION: pneumonia TECHNIQUE: Frontal and lateral views of the chest. COMPARISON: 10/25/2018. FINDINGS: LUNGS AND PLEURAL SPACES: Partially obscured left hemidiaphragm may be due to atelectasis or consolidation in the left lung base. Coarse interstitial markings similar to the prior exam. No pneumothorax. No effusion. HEART: Mild cardiomegaly. Status post coronary artery bypass graft. MEDIASTINUM: Central airways and mediastinal contour are unremarkable. BONES/JOINTS: Sternal wires. SOFT TISSUES: Unremarkable. RAD/Chest PA and Lateral IMPRESSION: 1. Partially obscured left hemidiaphragm may be due to atelectasis or consolidation in the left lung base. Pneumonia not excluded. 2. Coarse interstitial markings similar to the prior exam. 3. Mild cardiomegaly. Electronically Signed: Richard Hurd MD at 18:44 EDT ,
--- NOTE | 2022-10-20 19:01 | EKG12_ITS ---
Test Reason : SOB Blood Pressure : / mmHG Vent. Rate : 084 BPM Atrial Rate : 084 BPM P-R Int : 174 ms QRS Dur : 082 ms QT Int : 366 ms P-R-T Axes : -14 004 084 degrees QTc Int : 432 ms Sinus rhythm with Premature atrial complexes Nonspecific T wave abnormality Abnormal ECG Confirmed by KAILEE DUNCAN, KASSY ([id number]), newspaper or periodical editor BAR DAN ([id number]) on 10/22/2022 9:12:22 AM Referred By: Confirmed By:KASSY DUGAN MD
[2022-10-20 19:34] LABS: Absolute Lymphocyte Count 0.47 X10^3/uL (0.83-4.51); Absolute Neutrophil Count 7.3 X10^3/uL (2.0-7.7); Basophil# 0.01 X10^3/uL; Basophil% 0.1 % (0-1); Hematocrit 43.6 % (40-54); Hemoglobin 14.5 g/dL (13.0-16.5); Lymphocyte # 0.47 X10^3/ul (0.83-4.51); Lymphocyte % 5.7 % (19-41); Mean Corp Hgb Conc 33.3 g/dL (32-36); Mean Corpuscular Hgb 31.9 pg (27.0-32.0); Mean Corpuscular Volume 95.8 fL (80-94); Mean Platelet Vol. 10.2 fl (6.2-12.0); Monocyte% 4.9 % (0-10); NRBC Flagged by Analyzer 0 % (0-5); Neutrophil # 7.26 X10^3/uL (2.7-7.7); Neutrophil % 88.6 % (47-70); POSITIVE DIFFERENTIAL YES; Platelet Count 162 K/mm3 (150-450); RBC Distribution Width CV 13.1 % (11.6-14.6); RBC Distribution Width SD 46.4 fl (35.1-43.9); Red Blood Count 4.55 M/mm3 (4.6-6.2); White Blood Count 8.2 K/mm3 (4.4-11.0)
[2022-10-20 19:36] LABS: Differential Indicated SCAN CRITERIA MET
[2022-10-20 19:40] VITALS: BP 156/84; PULSE 75; RESP 16; O2SAT 96
[2022-10-20 19:40] LABS: Differential Comment SCANNED
[2022-10-20 19:49] LABS: BNP,B-Type NATRIURETIC PEPTIDE 130.1 pg/mL (0-100)
[2022-10-20 19:50] LABS: Anion Gap 8 (5-15); BUN 35 mg/dL (7-18); BUN/Creat Ratio 19.7 RATIO (10-20); Calcium,Total 9.9 mg/dL (8.5-10.1); Chloride 95 mmol/L (98-107); Creatinine, Serum 1.78 mg/dL (0.70-1.30); D-Dimer Quantitative (DVT/PE) 0.84 FEU/ug/m (0.27-0.49); EST Glomerular Filtration Rate 40 mL/min (>60); Est Glom Filt Rate - Afr Amer 49 mL/min (>60); Estimated Creatinine Clearance 34.85 ml/min; Glucose 280 mg/dL (74-106); Potassium 4.7 mmol/L (3.5-5.1); Sodium Level 128 mmol/L (136-145); Troponin-I HS 10 pg/mL (3.0-78.0)
--- NOTE | 2022-10-20 19:51 | CT_ITS ---
EXAM: CT ANGIOGRAPHY CHEST WITHOUT AND WITH INTRAVENOUS CONTRAST CLINICAL INDICATION: pulmonary embolism TECHNIQUE: Helically acquired angiography images were obtained of the chest without and with intravenous contrast. This CT exam was performed using one or more of the following dose reduction techniques: automated exposure control, adjustment of the mA and/or kV according to patient size, and/or use of iterative reconstruction technique. MIP reconstructed images were created and reviewed. CONTRAST: IV 100mL [id number] RADIATION DOSE: CTDIvol = 13.54 mGy, DLP = 521.48 mGy-cm COMPARISON: Noncontrast CT of the chest 02/16/2020. FINDINGS: PULMONARY ARTERIES: Unremarkable. Normal in caliber. No evidence of pulmonary embolism. AORTA: Unremarkable. Normal in caliber. No evidence of dissection. GREAT VESSELS OF AORTIC ARCH: Unremarkable. Normal in caliber. No evidence of dissection. LUNGS AND PLEURAL SPACES: Unremarkable. No mass. No consolidation or edema. No pleural effusion or thickening. No pneumothorax. HEART: Coronary artery calcifications. Status post coronary artery bypass graft. Heart size is normal. No pericardial effusion. MEDIASTINUM: Unremarkable. No mediastinal or hilar adenopathy. Esophagus is unremarkable. No hiatal hernia. THYROID: Unremarkable. No thyroid lesions. BONES/JOINTS: Unremarkable. No suspicious lytic or blastic abnormality. TUBES, LINES AND DEVICES: Sternal wires. CT/CTA Chest W/WO Contrast IMPRESSION: 1. No pulmonary embolism or dissection. 2. Mild fibrotic changes in the lung bases bilaterally. 3. Coronary artery disease. Electronically Signed: Richard Hurd MD at 20:57 EDT ,
[2022-10-20] MEDS: 0.9% Normal Saline 1,000 ML 150 ML IV (19:55)
[2022-10-20] MEDS: levoFLOXacin 750 MG Tablet PO (21:24)
[2022-10-20] MEDS: HYDROcodone Bitartrate/Apap 5/325 Tablet PO (21:24)
[2022-10-20 21:29] VITALS: RESP 22
== END 2022-10-20 21:29 | disposition home or self-care (01) ==
PROVIDERS: Emergency Provider Emergency Medicine; PCP Family Medicine; Visit Provider Emergency Medicine
DX: J44.1 Chronic obstructive pulmonary disease with (acute) exacerbation (principal); I13.0 Hypertensive heart and chronic kidney disease with heart failure and stage 1 through stage 4 chronic kidney disease, or unspecified chronic kidney disease; I50.42 Chronic combined systolic (congestive) and diastolic (congestive) heart failure; E11.22 Type 2 diabetes mellitus with diabetic chronic kidney disease; I25.10 Atherosclerotic heart disease of native coronary artery without angina pectoris; E78.5 Hyperlipidemia, unspecified; F17.210 Nicotine dependence, cigarettes, uncomplicated; N18.9 Chronic kidney disease, unspecified; J40 Bronchitis, not specified as acute or chronic; Z79.82 Long term (current) use of aspirin; Z79.899 Other long term (current) drug therapy; Z79.84 Long term (current) use of oral hypoglycemic drugs
CPT/HCPCS: 71046; 71275; 80048; 83880; 84484; 85025; 85379; 93005; 96360; 96361; 99283; J7030; Q9967; A4216

== ENCOUNTER 2022-11-05 10:39 | Emergency (ER) | payer MEDICARE, SELFPAY ==
[2022-11-05] VITALS (9 sets, daily range): BP systolic 100–141; BP diastolic 69–87; PULSE 67–77; RESP 13–22; TEMP 36.1–36.6; O2SAT 94–98; BMI 31.6
--- NOTE | 2022-11-05 10:50 | EKG12_ITS ---
Test Reason : CP Blood Pressure : / mmHG Vent. Rate : 077 BPM Atrial Rate : 068 BPM P-R Int : 162 ms QRS Dur : 076 ms QT Int : 366 ms P-R-T Axes : -29 000 102 degrees QTc Int : 414 ms Sinus rhythm with Premature supraventricular complexes Inferior infarct , age undetermined Abnormal ECG Confirmed by KAILEE DUNCAN, KASSY ([id number]), editor continuity and script BAR DAN ([id number]) on 11/06/2022 10:23:45 AM Referred By: Confirmed By:KASSY DUGAN MD
--- NOTE | 2022-11-05 10:58 | ED.VIS.CHEST ---
HPI History of Present Illness Chief Complaint: Chest Pain Informant: patient and family Narrative Narrative: Sent in here from PCP office after being evaluated on follow-up today. 2 weeks ago seen in the ED chest pains with a CT scan noting pneumonia as per on antibiotics he follow-up with his doctor a week later had prednisone added and muscle relaxers. Follow-up again today and seen practitioner. States intermittent pains left side going to his back on the left side sharp in nature. He was sent back here for another CAT scan. They reported possible inconclusive CT chest for PE. He does have history of chronic kidney disease followed by Dr. Bruna Levy. History of cardiomyopathy and coronary disease three-vessel CABG in [address] Her. He states his cough is improving. Pain is not. [facility] Medical History Acute blood loss anemia Acute kidney injury (07/2018) Atherosclerosis of coronary artery without angina pectoris Chronic combined systolic and diastolic CHF (congestive heart failure) Chronic kidney disease (CKD) COPD (chronic obstructive pulmonary disease) Elevated hemidiaphragm Essential (primary) hypertension GERD (gastroesophageal reflux disease) Hyperlipidemia Ischemic cardiomyopathy Laryngeal cancer (11/2015) laryngoscopy, direct, op, scop, exc tumr Nicotine dependence Non-rheumatic tricuspid valve insufficiency Non-ST elevation (NSTEMI) myocardial infarction (07/19/18) Nonsustained ventricular tachycardia (07/2018) Obesity BURT (obstructive sleep apnea) Pleural effusion Secondary pulmonary arterial hypertension Smoking greater than 40 pack years Type 2 diabetes mellitus Home Medications aspirin 81 mg chewable tablet 81 mg PO DAILY@0800 10/25/18 [History Last Taken Unknown] atorvastatin 40 mg tablet 40 mg PO QHS 10/25/18 [History Last Taken Unknown] albuterol sulfate 2.5 mg/3 mL (0.083 %) solution for nebulization 2.5 mg inhalation Q4H PRN 06/24/19 [History Last Taken Unknown] albuterol sulfate 90 mcg/actuation aerosol inhaler 2 puff inhalation Q6H PRN 06/24/19 [History Last Taken Unknown] cholecalciferol (vitamin D3) 25 mcg (1,000 unit) capsule 1,000 unit PO DAILY 09/06/20 [History Last Taken Unknown] doxazosin 2 mg tablet 2 mg PO DAILY 09/06/20 [History Last Taken Unknown] empagliflozin 10 mg tablet (Jardiance) 10 mg PO DAILY 04/02/22 [History Last Taken Unknown] gabapentin 400 mg capsule 600 mg PO TID 04/02/22 [History Last Taken Unknown] loratadine 10 mg tablet 10 mg PO DAILY PRN 04/02/22 [History Last Taken Unknown] losartan 100 mg tablet 50 mg PO DAILY #30 tabs 04/02/22 [History Last Taken Unknown] metoprolol succinate 100 mg tablet,extended release 24 hr 100 mg PO DAILY #45 tabs 06/26/22 [History Last Taken Unknown] hydrocodone-acetaminophen 5-325mg 5mg-325mg 1 tab PO Q6H PRN PRN Pain 3 days #10 TABLETS 10/20/22 [Rx Last Taken Unknown] levofloxacin 750 mg tablet 750 mg PO DAILY #4 tabs 10/20/22 [Rx Last Taken Unknown] hydrocodone-acetaminophen 5-325mg 5mg-325mg 1 tab PO Q6H PRN PRN Pain 3 days #12 TABLETS 11/05/22 [Rx Last Taken Unknown] Allergy/AdvReac Type Severity Reaction Status Date / Time amoxicillin Allergy Anaphylaxis Verified 11/05/22 10:41 azithromycin [From Zithromax] Allergy Hives Verified 11/05/22 10:41 diltiazem Allergy Swelling Verified 11/05/22 10:41 Penicillins [PCN] Allergy Anaphylaxis Verified 11/05/22 10:41 Sulfa (Sulfonamide Allergy Hives Verified 11/05/22 10:41 Antibiotics) tetracycline Allergy Hives Verified 11/05/22 10:41 acetaminophen [From Percocet] AdvReac SOB Verified 11/05/22 10:41 amlodipine AdvReac Other Verified 11/05/22 10:41 cyclobenzaprine AdvReac Other Verified 11/05/22 10:41 [From Flexeril] lisinopril AdvReac cough Verified 11/05/22 10:41 nifedipine AdvReac Upset Verified 11/05/22 10:41 Stomach oxycodone [From Percocet] AdvReac SOB Verified 11/05/22 10:41 simvastatin AdvReac Other Verified 11/05/22 10:41 Family History Mother Heart disease Father Heart disease Other CAD (coronary artery disease) Cancer Diabetes Gall stones Hypertension Surgical History H/O coronary artery bypass surgery (07/27/18) History of left heart catheterization (07/20/18) Social History Smoking Status: Current every day smoker tobacco type: cigarettes Tobacco: How many years used: 51 quit status: has quit before alcohol intake: never substance use type: does not use caffeine: Yes Type: coffee Number of servings: 10 ROS ROS ED Constitutional Constitutional ED: Denies chills, fever(s) or sweats Eyes Eyes: Denies change in vision ENT ENT ED: Denies dysphagia or sore throat Cardiovascular Cardiovascular: Reports chest pain; Denies leg edema, palpitations or racing heartbeat Respiratory/Chest Respiratory/Chest: Denies cough, dyspnea or dyspnea on exertion Gastrointestinal Gastrointestinal: Denies abdominal pain, diarrhea, nausea or vomiting Genitourinary Genitourinary ED: Denies dysuria, hematuria or urinary frequency Musculoskeletal Musculoskeletal: Reports back pain; Denies extremity pain or neck pain Integumentary Denies rash or wounds Neurologic Neurologic: Denies headache(s), paresthesias or weakness EXAM Physical Exam Const Vital Signs: 11/05/22 10:42 11/05/22 11:55 11/05/22 11:55 Temperature 97 F L Temperature Source Temporal Pulse Rate 67 77 Respiratory Rate 22 H 13 Respiratory Effort Blood Pressure 132/75 H 123/74 H Blood Pressure Mean 94 90 Pulse Ox 94 98 96 Oxygen Delivery Method Room Air Room Air Room Air 11/05/22 12:05 11/05/22 12:08 11/05/22 13:06 Temperature 97.9 F Temperature Source Oral Pulse Rate 76 69 Respiratory Rate 18 13 Respiratory Effort Normal Non-Labored Blood Pressure 129/70 H 141/72 H Blood Pressure Mean 89 95 Pulse Ox 97 97 Oxygen Delivery Method Room Air Room Air 11/05/22 13:39 11/05/22 15:16 11/05/22 16:26 Temperature Temperature Source Pulse Rate 72 77 72 Respiratory Rate 16 18 19 H Respiratory Effort Blood Pressure 115/71 127/87 H 126/83 H Blood Pressure Mean 85 100 97 Pulse Ox 95 97 96 Oxygen Delivery Method Room Air Room Air Room Air 11/05/22 17:04 11/05/22 17:14 Temperature Temperature Source Pulse Rate 74 Respiratory Rate 13 Respiratory Effort Blood Pressure 100/77 116/69 Blood Pressure Mean 84 Pulse Ox 96 Oxygen Delivery Method Positive well nourished and well developed General Appearance ED: well developed and NAD HEENT Reports moist mucous membranes normocephalic and atraumatic Eyes PERRL, EOMs intact bilaterally and conjunctivae normal General Eye ED: Yes normal appearance of both eyes Neck no lymphadenopathy and supple General: Negative for tenderness Chest Wall Chest: Negative for tenderness Resp normal respiratory effort and normal air movement Effort and Inspection: symmetric chest movement; Negative for respiratory distress Cardio regular rate, regular rhythm and no murmurs Peripheral Pulses: pulses 2+ throughout GI normal to inspection, nondistended, normoactive bowel sounds and non-tender Palpation: Negative for guarding or rebound tenderness present Back/Spine no CVA tenderness and no thoracic nor lumbar tenderness Extremity normal to inspection General Extremety ED: Negative for edema or tenderness General Extremity: Negative for edema Neuro oriented x3 and no sensory deficits noted Sensorium / Orientation: awake and alert Skin no rashes or lesions noted and no wounds Heart Score History: Slightly/Non-Suspicious ECG: Normal Age: >/= 65 years Risk Factors: >/= 3 Risk Factors or History of CAD Troponin: </= Normal Limit Score: 4 MDM MDM MDM Narrative Medical decision making narrative: Interventions / MDM: Differential diagnosis: Chest pain, ACS, pulm embolism, aortic dissection Diagnosis considered but do not suspect: N/A My EKG interpretation: Sinus rate of 77, no ST changes, occasional PACs noted. Imaging independently reviewed and interpreted by myself: Chest x-ray: Chronic findings no infiltrates no pneumothorax. Also read by radiology. CT of the chest: My review no PE no dissection, no infiltrates. Interstitial fibrosis findings. External documents reviewed: Work-up from the ED recently, negative PE, no infiltrates. He is treated for COPD exacerbation with antibiotics. Test considered but not ordered:N/A ED course: Patient sent here to the ED due to persistent recurrent pain into his back left chest. He has history of coronary disease. EKG with no acute findings PACs were noted. Cardiac work-up was initiated troponin negative x2 was given morphine. During this time I did evaluate the patient CT scan was diagnostic scan with no indeterminate findings concerns and negative PE. I discussed this with the patient and family. He is stable CKD creatinine of 2.07 creatinine clearance of 32. Chest x-ray was ordered. This was negative. Patient pain recurrent left-sided redosed with morphine. I did add a D-dimer is elevated 0.83. Risk and benefit discussed with patient for rescanning due to pain going to his back. 1640: I did not see any PE or dissection or infiltrates. No pneumothorax. Pending final read at this time. Patient more comfortable. Review of his records history of her COPD. His cough is improving. He did tolerate hydrocodone's in the past. Plan will be symptom control with this medicine. With 2 negative troponins severe pain yesterday not likely cardiac in nature. He will follow with PCP office and his assistant branch manager once CT scan is read. 1655: Final read CTA negative. Interstitial fibrosis. Clinically cough is improving. He will be treated with short prescription of hydrocodone as this is helped him. He will follow-up with return precautions. All questions were answered. Re-evaluation: stable Disposition discussed with patient/family/significant other: Patient and family Case discussed with consulting clinician: N/A This note was generated with [employer] dictation software. It may contain incorrect words, spelling, and punctuation that were not noted in checking the note before signing. Lab Data Attestation: I reviewed the patient's lab results. Labs: Laboratory Results - last 24 hr 11/05/22 11/05/22 11/05/22 11:00 13:00 15:31 WBC 7.8 RBC 4.98 Hgb 16.1 Hct 47.8 MCV 96.0 H MCH 32.3 H MCHC 33.7 RDW Std Deviation 46.3 H RDW Coeff of Tala 13.1 Plt Count 150 MPV 10.0 Immature Gran % (Auto) 0.800 Neut % (Auto) 70.9 H Lymph % (Auto) 15.1 L [place] % (Auto) 9.7 Eos % (Auto) 2.9 Baso % (Auto) 0.6 Absolute Neuts (auto) 5.5 Absolute Lymphs (auto) 1.18 Nucleated RBC % 0 PT 13.9 INR 1.1 APTT 34.2 D-Dimer Quant (PE/DVT) 0.83 H* Sodium 133 L Potassium 4.4 Chloride 100 Carbon Dioxide 27.0 Anion Gap 6 BUN 39 H Creatinine 2.07 H Estim Creat Clear Calc 32.13 Est GFR (MDRD) Af Amer 41 L Est GFR (MDRD) Non-Af 34 L BUN/Creatinine Ratio 18.8 Glucose 169 H Calcium 10.4 H Troponin I High Sens 16 15 Radiography Diagnostic Testing: Clinical Impression(s) from Imaging Studies Chest X-Ray 11/05/22 12:42 IMPRESSION: Stable examination. Findings suggestive of chronic interstitial fibrosis. Electronically Signed: Ambrose Dennis MD at 13:34 EDT , Chest CTA 11/05/22 15:37 IMPRESSION: 1. No evidence of acute pulmonary embolism. 2. COPD. 3. Interstitial pulmonary fibrosis. Electronically Signed: Luis Alfredo Stewart MD at 16:45 EDT , Discharge Plan Triage Chief Complaint: Chest Pain Other Complaint: Back ED Provider: Rony Arce Dx/Rx/DC Orders Clinical Impression: Chest pain of uncertain etiology, CKD (chronic kidney disease), Back pain, Hx of CABG Instructions: ED Back Pain (Acute or Chronic), ED Chest Pain, Uncertain Cause Prescriptions: New hydrocodone-acetaminophen [hydrocodone-acetaminophen] 5-325 mg tablet 1 tab PO Q6H PRN PRN (Reason: Pain) 3 Days Qty: 12 0RF No Action losartan 100 mg tablet 50 mg PO DAILY Qty: 30 albuterol sulfate 90 mcg/actuation HFA aerosol inhaler 2 puff INHALATION Q6H PRN albuterol sulfate 2.5 mg /3 mL (0.083 %) solution for nebulization 2.5 mg INHALATION Q4H PRN doxazosin 2 mg tablet 2 mg PO DAILY Patient Comments: take 1 tablet by mouth once daily cholecalciferol (vitamin D3) 25 mcg (1,000 unit) capsule 1,000 unit PO DAILY Patient Comments: take 1 capsule by mouth once daily gabapentin 400 mg capsule 600 mg PO TID Patient Comments: take 1 capsule by mouth three times a day Jardiance 10 mg tablet 10 mg PO DAILY loratadine 10 mg tablet 10 mg PO DAILY PRN atorvastatin 40 MG tablet 40 mg PO QHS aspirin 81 MG tablet,chewable 81 mg PO DAILY@0800 levofloxacin 750 mg tablet 750 mg PO DAILY Qty: 4 0RF hydrocodone-acetaminophen 5-325 mg tablet 1 tab PO Q6H PRN PRN (Reason: Pain) 3 Days Qty: 10 0RF metoprolol succinate 100 mg tablet extended release 24 hr 100 mg PO DAILY Qty: 45 Primary Care Provider: Yanick Rashid Referrals: Zaki Her MD [Med Staff - Active Staff] - 3-5 Days Yanick Rashid MD [Primary Care Provider] - 3-5 Days Activity Restrictions/Additional Instructions: Cardiac work-up negative. Repeat CTA chest also negative. No PE no infiltrates no dissection. Take medications as prescribed. Follow-up with your doctor and your assistant branch manager. Return if worsening symptoms. Disposition Disposition: Home, Self Care Discharge Date/Time: 11/05/22 17:15
[2022-11-05 11:07] LABS: Absolute Lymphocyte Count 1.18 X10^3/uL (0.83-4.51); Absolute Neutrophil Count 5.5 X10^3/uL (2.0-7.7); Basophil# 0.05 X10^3/uL; Basophil% 0.6 % (0-1); Eosinophil# 0.23 X10^3/uL; Eosinophils% 2.9 % (0-5); Hematocrit 47.8 % (40-54); Hemoglobin 16.1 g/dL (13.0-16.5); Lymphocyte # 1.18 X10^3/ul (0.83-4.51); Lymphocyte % 15.1 % (19-41); Mean Corp Hgb Conc 33.7 g/dL (32-36); Mean Corpuscular Hgb 32.3 pg (27.0-32.0); Monocyte# 0.76 X10^3/uL; Monocyte% 9.7 % (0-10); NRBC Flagged by Analyzer 0 % (0-5); Neutrophil # 5.54 X10^3/uL (2.7-7.7); Neutrophil % 70.9 % (47-70); Platelet Count 150 K/mm3 (150-450); RBC Distribution Width CV 13.1 % (11.6-14.6); RBC Distribution Width SD 46.3 fl (35.1-43.9); Red Blood Count 4.98 M/mm3 (4.6-6.2); White Blood Count 7.8 K/mm3 (4.4-11.0)
[2022-11-05] MEDS: Morphine 4 MG/ML Syringe IV ×2 (11:07→15:33)
[2022-11-05 11:14] LABS: International Normalized Ratio 1.1; Prothrombin Time (Protime)PT. 13.9 SECONDS (11.7-14.9)
[2022-11-05 11:15] LABS: Partial Thromboplast Time 34.2 Seconds (24.1-36.2)
[2022-11-05 11:38] LABS: Anion Gap 6 (5-15); BUN 39 mg/dL (7-18); BUN/Creat Ratio 18.8 RATIO (10-20); Calcium,Total 10.4 mg/dL (8.5-10.1); Chloride 100 mmol/L (98-107); Creatinine, Serum 2.07 mg/dL (0.70-1.30); EST Glomerular Filtration Rate 34 mL/min (>60); Est Glom Filt Rate - Afr Amer 41 mL/min (>60); Estimated Creatinine Clearance 32.13 ml/min; Glucose 169 mg/dL (74-106); Potassium 4.4 mmol/L (3.5-5.1); Sodium Level 133 mmol/L (136-145); Troponin-I HS (w/2H Reflex) 16 pg/mL (3.0-78.0)
--- NOTE | 2022-11-05 12:42 | RAD_ITS ---
STUDY: X-RAY CHEST REASON FOR EXAM: Male, 71 years old. Chest pain TECHNIQUE: PA and lateral views of the chest. COMPARISON: Comparison is made with prior study October 20, 2022. FINDINGS: EKG electrodes are seen. Stable increased interstitial markings with areas of confluence in both lungs worse at the lung bases. Findings of bronchiectasis. Findings suggestive of a chronic interstitial scarring. There is no demonstrated pleural abnormality. Sternal cerclage wires and vascular clips are present from a prior sternotomy and coronary artery bypass graft procedure (CABG). Normal mediastinum and jerzy. Normal visualized pulmonary arteries. There is atherosclerotic calcification of the aortic arch with tortuosity. There is demineralization of the osseous structures. Normal visualized ribs, clavicles, and shoulders. There is no demonstrated abnormality of the visualized soft tissue structures of the upper abdomen. RAD/Chest PA and Lateral IMPRESSION: Stable examination. Findings suggestive of chronic interstitial fibrosis. Electronically Signed: Ambrose Dennis MD at 13:34 EDT ,
[2022-11-05 13:04] LABS: Reflex Troponin-HS? (from REC) Y
[2022-11-05 13:27] LABS: Troponin-I HS 15 pg/mL (3.0-78.0)
--- NOTE | 2022-11-05 15:37 | CT_ITS ---
EXAM: CT ANGIOGRAPHY CHEST WITH INTRAVENOUS CONTRAST CLINICAL INDICATION: chest pain TECHNIQUE: Helically acquired angiography images were obtained of the chest with intravenous contrast. This CT exam was performed using one or more of the following dose reduction techniques: automated exposure control, adjustment of the mA and/or kV according to patient size, and/or use of iterative reconstruction technique. MIP reconstructed images were created and reviewed. CONTRAST: IV 100mL [id number] COMPARISON: No relevant prior studies available. FINDINGS: PULMONARY ARTERIES: Normal. Normal in caliber. No evidence of pulmonary embolism. AORTA: Normal. Normal in caliber. No evidence of dissection. GREAT VESSELS OF AORTIC ARCH: Normal. Normal in caliber. No evidence of dissection. LUNGS AND PLEURAL SPACES: Diffuse centrilobular pulmonary emphysema. Thickening of the pulmonary interstitium consistent with fibrosis. No mass. No pleural effusion or thickening. No pneumothorax. HEART: Heart is normal size. Surgical changes of coronary artery bypass graft (CABG). Prominent coronary artery calcification. No pericardial effusion. MEDIASTINUM: Normal. No mediastinal or hilar adenopathy. Esophagus is unremarkable. No hiatal hernia. BONES/JOINTS: Compression deformity of the T6 vertebral body which appears to be chronic. No suspicious lytic or blastic abnormality. CT/CTA Chest W/WO Contrast IMPRESSION: 1. No evidence of acute pulmonary embolism. 2. COPD. 3. Interstitial pulmonary fibrosis. Electronically Signed: Luis Alfredo Stewart MD at 16:45 EDT ,
[2022-11-05 16:04] LABS: D-Dimer Quantitative (DVT/PE) 0.83 FEU/ug/m (0.27-0.49)
[2022-11-05] MEDS: HYDROcodone Bitartrate/Apap 5/325 Tablet PO (17:08)
== END 2022-11-05 17:15 | disposition home or self-care (01) ==
PROVIDERS: Emergency Provider Emergency Medicine; PCP Family Medicine; Visit Provider Emergency Medicine
DX: R07.9 Chest pain, unspecified (principal); J44.9 Chronic obstructive pulmonary disease, unspecified; I13.0 Hypertensive heart and chronic kidney disease with heart failure and stage 1 through stage 4 chronic kidney disease, or unspecified chronic kidney disease; I50.42 Chronic combined systolic (congestive) and diastolic (congestive) heart failure; E11.22 Type 2 diabetes mellitus with diabetic chronic kidney disease; N18.9 Chronic kidney disease, unspecified; M54.9 Dorsalgia, unspecified; I25.10 Atherosclerotic heart disease of native coronary artery without angina pectoris; F17.210 Nicotine dependence, cigarettes, uncomplicated; E78.5 Hyperlipidemia, unspecified; Z95.1 Presence of aortocoronary bypass graft; Z79.82 Long term (current) use of aspirin; Z79.899 Other long term (current) drug therapy; Z85.21 Personal history of malignant neoplasm of larynx; I25.2 Old myocardial infarction; I5A Non-ischemic myocardial injury (non-traumatic)
CPT/HCPCS: 71046; 71275; 80048; 84484; 85025; 85379; 85610; 85730; 93005; 99285; Q9967; A4216

== ENCOUNTER → 2022-11-28 | Outpatient (CLI) | payer MEDICARE, SELFPAY ==
--- NOTE | 2022-11-28 14:12 | STRESSREP ---
Stress Test Report Pharmacologic myocardial perfusion stress test. 71-year-old man with a history of chest pain Resting EKG demonstrates sinus rhythm with a rate of 71 bpm. Resting blood pressure is 158/90 mmHg. 0.4 mg of regadenoson was infused per usual protocol followed by rapid intravenous saline flush injection. Continuous EKG monitoring was performed. The maximum heart rate was 93 bpm which was 62% of max impacted heart rate the maximum workload was 1 metabolic equivalent. At rest there were no ST or T wave changes noted to suggest ischemia and at peak infusion nonspecific ST changes were noted which did not meet the criteria for ischemia. No clinical angina is noted. The final blood pressure was 130/82 mmHg. Myocardial perfusion protocol. 14.6 mCi of technetium 99m sestamibi was injected at rest. 0.4 mg of regadenoson was infused per usual protocol. At peak infusion 44.3 mCi of technetium 99m sestamibi was injected stress images were obtained stress and rest images were reconstructed and compared in the short axis vertical long and horizontal long axis. Gated images were also obtained. Perfusion SPECT analysis: Review of the stress images demonstrate normal uptake of tracer noted in all areas of the myocardium. The resting images similar demonstrated normal uptake of tracer noted in all areas of the myocardium. No areas of reversibility are noted to suggest ischemia and no previous infarct is noted. Gated SPECT analysis: The gated ejection fraction is 53%. Conclusion: Normal pharmacologic myocardial perfusion stress test. Preserved ejection fraction.
== END | disposition home or self-care (01) ==
PROVIDERS: PCP Family Medicine; Referring Provider Nurse Practitioner Gerontology; Visit Provider Nurse Practitioner Gerontology
DX: R07.9 Chest pain, unspecified (principal); Z95.1 Presence of aortocoronary bypass graft
CPT/HCPCS: 78452; 93017; A9500; A4216; J2785